=== PATIENT | male | born 1965 | race Caucasian/White ===

== ENCOUNTER 2018-05-09 18:35 | Emergency (ER) | payer OTHER ==
[2018-05-09 18:43] VITALS: BP 115/83
[2018-05-09] MEDS ORDERED: Diazepam TAB(*) 5 MG PO ONE (19:13)
--- NOTE | 2018-05-09 20:04 | ED ---
Back Pain - HPI Summary HPI Summary: Patient with history of degenerative disc disease and lumbar spine complains of fall onto lower back today at 1300 with subsequent back pain and numbness and tingling into both legs. Patient is ambulatory. Denies any other injury, pain , symptoms. Denies urinary retention, incontinence. Medical history is COPD, DDD, asthma. States he drank a sixpack to manage pain after fall. Last period 6 PM. - History of Current Complaint Chief Complaint: EDBackInjuryPain Stated Complaint: BACK PAIN NUMBNESS LEGS Time Seen by Provider: 05/09/18 19:04 Hx Obtained From: Patient Onset/Duration: Started Hours Ago Timing: Constant Back Pain Location: Is Diffuse Severity Initially: Severe Severity Currently: Severe Pain Intensity: 10 Pain Scale Used: 0-10 Numeric Character: Sharp, Dull, Aching, Throbbing Aggravating Symptom(s): Movement, Walking Associated Signs And Symptoms: Positive: Numbness, Tingling - Allergies/Home Medications Allergies/Adverse Reactions: Allergies Allergy/AdvReac Type Severity Reaction Status Date / Time indomethacin [From Indocin] Allergy See Comment Verified 05/09/18 18:44 morphine Allergy Hallucinati Verified 05/09/18 18:44 ons ranitidine [From Zantac] Allergy Hives Verified 05/09/18 18:44 MAYONNAISE Allergy GI UPSET Uncoded 05/09/18 18:44 STOMACH - SEVERE MUSHROOMS Allergy THROAT Uncoded 05/09/18 18:44 SWELLS PMH/Surg Hx/FS Hx/Imm Hx Endocrine/Hematology History: Denies: Hx Anticoagulant Therapy, Hx Diabetes, Hx Thyroid Disease Cardiovascular History: Reports: Hx Angina, Hx Coronary Artery Disease, Hx Myocardial Infarction Denies: Hx Hypercholesterolemia, Hx Hypertension, Hx Pacemaker/ICD, Hx Valvular Heart Disease Respiratory History: Reports: Hx Asthma - USE RESCUE INHALER,, Hx Chronic Obstructive Pulmonary Disease (COPD), Hx Pneumonia - recent History: Denies: Hx Dialysis, Hx Renal Disease Musculoskeletal History: Reports: Hx Arthritis - NECK, Other Musculoskeletal History - INTERVERTEBRAL DISC CERVICAL W/MYELOPATHY Sensory History: Reports: Hx Contacts or Glasses - READING GLASSES Denies: Hx Hearing Aid Opthamlomology History: Reports: Hx Contacts or Glasses - READING GLASSES Neurological History: Reports: Hx Transient Ischemic Attacks (TIA) Denies: Hx Dementia, Hx Seizures Psychiatric History: Denies: Hx Panic Disorder, Hx Substance Abuse - Surgical History Surgery Procedure, Year, and Place: CERVICAL FUSION 11/01-[facility] Infectious Disease History: No Infectious Disease History: Denies: Hx Clostridium Difficile, Hx Hepatitis, Hx Human Immunodeficiency Virus (HIV), Hx Shingles, Hx Tuberculosis, Traveled Outside the [place] in Last 30 Days - Social History Alcohol Use: Daily Substance Use Type: Reports: None Smoking Status (MU): Heavy Every Day Tobacco Smoker Type: Cigarettes Amount Used/How Often: 4-6 CIGARETTES PER DAY Have You Smoked in the Last Year: Yes Review of Systems Constitutional: Negative Eyes: Negative ENT: Negative Cardiovascular: Negative Respiratory: Negative Gastrointestinal: Negative Genitourinary: Negative Musculoskeletal: Other Skin: Other Neurological: Negative Psychological: Normal All Other Systems Reviewed And Are Negative: Yes Physical Exam - Summary Physical Exam Summary: PMS intact distally on bilateral lower extremities. Patient has positive flexion and extension of bilateral ankles and knees and hips with pain. Pain with palpation of lower back. Triage Information Reviewed: Yes Vital Signs On Initial Exam: Initial Vitals Temp Pulse Resp BP Pulse Ox 98.6 F 99 18 115/83 94 05/09/18 18:39 05/09/18 18:39 05/09/18 18:39 05/09/18 18:39 05/09/18 18:39 Vital Signs Reviewed: Yes Appearance: Positive: Well-Appearing Skin: Positive: Warm Head/Face: Positive: Normal Head/Face Inspection Eyes: Positive: Normal Neck: Positive: Supple Respiratory/Lung Sounds: Positive: Clear to Auscultation Cardiovascular: Positive: Normal Abdomen Description: Positive: Nontender Musculoskeletal: Positive: Normal Neurological: Positive: Normal Psychiatric: Positive: Normal AVPU Assessment: Alert - Acosta Coma Scale Best Eye Response: 4 - Spontaneous Best Motor Response: 6 - Obeys Commands Best Verbal Response: 5 - Oriented Coma Scale Total: 15 Diagnostics - Vital Signs Vital Signs Temp Pulse Resp BP Pulse Ox 05/09/18 19:43 17 05/09/18 18:39 98.6 F 99 18 115/83 94 - Laboratory Lab Statement: Any lab studies that have been ordered have been reviewed, and results considered in the medical decision making process. - Radiology lumbar Xray Interpretation: No Acute Changes Radiology Interpretation Completed By: ED Physician Back Pain Course/Dx - Course Course Of Treatment: Patient with history of degenerative disc disease and lumbar spine complains of fall onto lower back today at 1300 with subsequent back pain and numbness and tingling into both legs. Patient is ambulatory. Denies any other injury, pain, symptoms. Denies urinary retention, incontinence. Medical history is COPD, DDD, asthma. States he drank a sixpack to manage pain after fall. Last period 6 PM. Physical exam:PMS intact distally on bilateral lower extremities. Patient has positive flexion and extension of bilateral ankles and knees and hips with pain. Pain with palpation of lower back. L-spine x-ray negative. Patient improved with Valium 5 makes by mouth and Toradol 60 mg IV. Patient be discharged home with Rx for muscle relaxers. - Diagnoses Provider Diagnoses: Back pain, Muscle spasm Discharge - Sign-Out/Discharge Documenting (check all that apply): Patient Departure - Discharge Plan Condition: Stable Disposition: HOME Prescriptions: Cyclobenzaprine TAB* [Flexeril 10 MG TAB*] 10 mg PO TID PRN 7 Days #20 tab PRN Reason: Pain Patient Education Materials: Muscle Spasm (ED), Back Pain (ED) Referrals: No Primary Care Phys,NOPCP [Primary Care Provider] - Additional Instructions: Use muscle relaxers as directed. Take ibuprofen for pain. Return to the ED for any new or worsening symptoms - Billing Disposition and Condition Condition: STABLE Disposition: Home
[2018-05-09] MEDS ORDERED: Ketorolac INJ* 60 MG/2 ML VIAL IM ONE (20:07)
--- NOTE | 2018-05-10 07:40 | RAD ---
INDICATION: Low back pain. COMPARISON: Comparison is made with a prior CT of the lumbar spine from September 22, 2013. TECHNIQUE: 5 views of the lumbar spine were obtained including lateral, oblique, AP and a coned-down lateral view of the lumbar sacral junction. FINDINGS: The vertebra are in normal alignment. No fracture is seen. There is mild disc space narrowing and endplate spurring at the L3-L4 and L4-L5 levels. IMPRESSION: 1. NO EVIDENCE FOR FRACTURE. 2. MILD DEGENERATIVE DISC DISEASE. R0
== END 2018-05-09 21:27 | disposition home or self-care (01) ==
LOC: ED 18:35
DX: M54.5 Low back pain (principal); M62.830 Muscle spasm of back; M51.36 Other intervertebral disc degeneration, lumbar region; J44.9 Chronic obstructive pulmonary disease, unspecified; J45.909 Unspecified asthma, uncomplicated; F17.210 Nicotine dependence, cigarettes, uncomplicated; Z91.81 History of falling; Z98.1 Arthrodesis status; Z88.8 Allergy status to other drugs, medicaments and biological substances; Z88.5 Allergy status to narcotic agent
CPT/HCPCS: 72110; 96372; 99282; A9270-GY; J1885

== ENCOUNTER 2018-06-12 09:09 | Emergency (ER) | payer OTHER ==
[2018-06-12] MEDS ORDERED: Ketorolac INJ* 60 MG/2 ML VIAL IM ONE (09:45)
[2018-06-12] MEDS ORDERED: oxyCODONE/Acetamin 5/325 MG* TAB PO ONE (09:45)
[2018-06-12 11:52] VITALS: BP 135/100
--- NOTE | 2018-06-12 17:49 | ED ---
Back Pain - HPI Summary HPI Summary: Pt. is a 53 y.o male who presents to the emergency department of exacerbation of chronic back pain. Patient states he is been remodeling his trailer and has been doing a lot of lifting. Patient states he's been having pain the last several days but was not able to get to a doctor until today. Pt. notes hx of DDD but states his legs occassional "give out" and this has been happening for years he states. He states he has seen neurosx in the past, but they did not want to do sx bc of pt.'s smoking hx. Patient states he has not been taking anything for pain at home. Pain is located to mid and low back is not radiate. He denies numbness, tingling or weakness in extremities. Denies bowel or bladder incontinence or retention. Denies chest pain, shortness of breath, fever, abdominal pain, vomiting, diarrhea. Symptoms are mild in severity. Movement makes symptoms worse. Nothing makes symptoms better. - History of Current Complaint Chief Complaint: EDBackInjuryPain Stated Complaint: NECK & BACK PAIN Time Seen by Provider: 06/12/18 09:20 Hx Obtained From: Patient Pain Intensity: 4 - Allergies/Home Medications Allergies/Adverse Reactions: Allergies Allergy/AdvReac Type Severity Reaction Status Date / Time indomethacin [From Indocin] Allergy See Comment Verified 06/12/18 09:12 morphine Allergy Hallucinati Verified 06/12/18 09:12 ons ranitidine [From Zantac] Allergy Hives Verified 06/12/18 09:12 MAYONNAISE Allergy GI UPSET Uncoded 06/12/18 09:12 STOMACH - SEVERE MUSHROOMS Allergy THROAT Uncoded 06/12/18 09:12 SWELLS Home Medications: Home Medications Albuterol HFA INHALER* [Ventolin HFA Inhaler*] 2 puff PO Q4H PRN 06/12/18 [ History Confirmed 06/12/18] Cyclobenzaprine TAB* [Flexeril 10 MG TAB*] 10 mg PO Q6H PRN 06/12/18 [History Confirmed 06/12/18] Fluticasone-Salmeterol 100-50* [Advair Diskus 100-50*] 1 puff PO DAILY 06/12/18 [History Confirmed 06/12/18] Spiriva Inhaler DEVICE* [Tiotropium Inhaler DEVICE*] 1 cap PO DAILY 06/12/18 [ History Confirmed 06/12/18] traZODone TAB* [Desyrel TAB*] 100 mg PO DAILY 06/12/18 [History Confirmed ] PMH/Surg Hx/FS Hx/Imm Hx Previously Healthy: Yes Endocrine/Hematology History: Denies: Hx Anticoagulant Therapy, Hx Diabetes, Hx Thyroid Disease Cardiovascular History: Reports: Hx Angina, Hx Coronary Artery Disease, Hx Myocardial Infarction Denies: Hx Hypercholesterolemia, Hx Hypertension, Hx Pacemaker/ICD, Hx Valvular Heart Disease Respiratory History: Reports: Hx Asthma - USE RESCUE INHALER,, Hx Chronic Obstructive Pulmonary Disease (COPD), Hx Pneumonia - recent History: Denies: Hx Dialysis, Hx Renal Disease Musculoskeletal History: Reports: Hx Arthritis - NECK, Other Musculoskeletal History - INTERVERTEBRAL DISC CERVICAL W/MYELOPATHY Sensory History: Reports: Hx Contacts or Glasses - READING GLASSES Denies: Hx Hearing Aid Opthamlomology History: Reports: Hx Contacts or Glasses - READING GLASSES Neurological History: Reports: Hx Transient Ischemic Attacks (TIA) Denies: Hx Dementia, Hx Seizures Psychiatric History: Denies: Hx Panic Disorder, Hx Substance Abuse - Surgical History Surgery Procedure, Year, and Place: CERVICAL FUSION 11/01-[facility] Infectious Disease History: No Infectious Disease History: Denies: Hx Clostridium Difficile, Hx Hepatitis, Hx Human Immunodeficiency Virus (HIV), Hx Shingles, Hx Tuberculosis, Traveled Outside the in Last 30 Days - Family History Known Family History: Positive: Other - Noncontributory - Social History Lives: With Family Alcohol Use: None Substance Use Type: Reports: None Smoking Status (MU): Heavy Every Day Tobacco Smoker Type: Cigarettes Amount Used/How Often: 4-6 CIGARETTES PER DAY Have You Smoked in the Last Year: Yes Review of Systems Cardiovascular: Negative Negative: Chest Pain Respiratory: Negative Negative: Shortness Of Breath Gastrointestinal: Negative Genitourinary: Negative Positive: Other - Back pain Neurological: Negative Negative: Weakness, Paresthesia, Numbness All Other Systems Reviewed And Are Negative: Yes Physical Exam Triage Information Reviewed: Yes Vital Signs On Initial Exam: Initial Vitals Temp Pulse Resp BP Pulse Ox 98 F 100 18 133/88 95 06/12/18 09:12 06/12/18 09:12 06/12/18 09:12 06/12/18 09:12 06/12/18 09:12 Vital Signs Reviewed: Yes Appearance: Positive: Pain Distress - Pt. sitting up in bed leaning forward, appears in pain but nontoxic. Family member present. Smells heavily of cigarette smoke. Skin: Positive: Warm, Dry Head/Face: Positive: Normal Head/Face Inspection Eyes: Positive: Normal Neck: Positive: Supple Musculoskeletal: Positive: Other - Diffuse back pain. 5/5 strength in bilateral LEs without neurosensory deficits Neurological: Positive: Normal, CN Intact II-III Psychiatric: Positive: Affect/Mood Appropriate Diagnostics - Vital Signs Vital Signs Temp Pulse Resp BP Pulse Ox 06/12/18 11:51 97.7 F 87 17 135/100 97 06/12/18 11:00 86 14 91 06/12/18 10:56 87 13 120/91 91 06/12/18 10:46 86 14 118/94 94 06/12/18 10:01 22 06/12/18 09:12 98 F 100 18 133/88 95 - Laboratory Lab Statement: Any lab studies that have been ordered have been reviewed, and results considered in the medical decision making process. Back Pain Course/Dx - Course Course Of Treatment: Patient presenting with exacerbation of chronic back pain. He has no neurological deficits on exam or evidence of cauda equina syndrome. Afebrile. He was given a dose of Percocet and Toradol. Reexamination patient is sleeping comfortably and pain has improved. We'll discharge home with family member. Advised to continue Tylenol or Motrin for pain as directed at home. Apply warm compresses. To follow-up with PCP or neuro surgery. To return to ER if sxs change or worsen. - Diagnoses Differential Diagnosis/HQI/PQRI: Positive: Arthritis, Cauda Equina Syndrome, Herniated Disc, Strain, Sprain Provider Diagnoses: Chronic back pain Discharge - Sign-Out/Discharge Documenting (check all that apply): Patient Departure - Discharge Plan Condition: Good Disposition: HOME Patient Education Materials: Chronic Back Pain (ED) Referrals: [facility] [Outside] No Primary Care Phys,NOPCP [Primary Care Provider] - Slime Yuen MD [Medical Doctor] - Additional Instructions: Schedule a follow up appointment with PCP and neurosurgery Apply warm compresses to back Tylenol or Motrin for pain as directed Avoid heavy lifting Return to ER for increased pain, leg numbness/weakness, bowel or bladder incontinence, of if concerned - Billing Disposition and Condition Condition: GOOD Disposition: Home
== END 2018-06-12 11:51 | disposition home or self-care (01) ==
LOC: ED 09:09
DX: G89.29 Other chronic pain (principal); M54.9 Dorsalgia, unspecified; F17.210 Nicotine dependence, cigarettes, uncomplicated; Z98.1 Arthrodesis status; Z88.5 Allergy status to narcotic agent; Z88.8 Allergy status to other drugs, medicaments and biological substances
CPT/HCPCS: 96372; 99282; A9270-GY; J1885

== ENCOUNTER 2018-10-09 12:58 | Observation (INO) | payer OTHER ==
[2018-10-09] MEDS ORDERED: NS 0.9% 1000 ML*IV.FLUID IV ONE (13:10)
--- NOTE | 2018-10-09 13:24 | ED ---
Influenza-Like Illness - HPI Summary HPI Summary: This pt is a 53 y/o male presenting to [facility] via EMS from [facility] for myalgia, generalized weakness, nausea, vomiting, diarrhea and cough for the past 2 days. Pt reports he has had nonbloody emesis and diarrhea. He describes cough as productive with sputum, unable to describe color. Additionally notes congestion, runny nose, SOB on exertion, and a syncopal episode yesterday. Pt states last night he was standing up from the toilet after having a bowel movement when he passed out. He notes he had a head strike. Denies fever, abd pain, dizziness, lightheadedness. Pt denies eating anything out of the ordinary. EMS reports pt is hypertensive, not normal for pt. He admits to occasional alcohol and heavy tobacco use. PMHx includes COPD. - History of Current Complaint Time Seen by Provider: 10/09/18 13:01 Hx Obtained From: Patient Onset/Duration: Gradual Onset, Lasting Days, Still Present Severity: Moderate Associated Signs & Symptoms: Myalgia, Cough, Nasal Congestion, Vomiting, Diarrhea - Allergy/Home Medications Allergies/Adverse Reactions: Allergies Allergy/AdvReac Type Severity Reaction Status Date / Time indomethacin [From Indocin] Allergy See Comment Verified 10/09/18 13:10 morphine Allergy Hallucinati Verified 10/09/18 13:10 ons mushroom Allergy Swelling Verified 10/09/18 15:49 ranitidine [From Zantac] Allergy Hives Verified 10/09/18 13:10 mayonnaise AdvReac Severe GI Upset Verified 10/09/18 15:50 Home Medications: Home Medications Fluticasone-Salmeterol 500-50* [Advair Diskus 500-50*] 1 puff INH BID 10/09/18 [ History Confirmed 10/09/18] traZODone TAB* [Desyrel TAB*] 100 - 200 mg PO BEDTIME PRN 10/09/18 [History Confirmed 10/09/18] PMH/Surg Hx/FS Hx/Imm Hx Endocrine/Hematology History: Denies: Hx Anticoagulant Therapy, Hx Diabetes, Hx Thyroid Disease Cardiovascular History: Reports: Hx Angina, Hx Coronary Artery Disease, Hx Myocardial Infarction Denies: Hx Hypercholesterolemia, Hx Hypertension, Hx Pacemaker/ICD, Hx Valvular Heart Disease Respiratory History: Reports: Hx Asthma - USE RESCUE INHALER,, Hx Chronic Obstructive Pulmonary Disease (COPD), Hx Pneumonia - recent History: Denies: Hx Dialysis, Hx Renal Disease Musculoskeletal History: Reports: Hx Arthritis - NECK, Other Musculoskeletal History - INTERVERTEBRAL DISC CERVICAL W/MYELOPATHY Sensory History: Reports: Hx Contacts or Glasses - READING GLASSES Denies: Hx Hearing Aid Opthamlomology History: Reports: Hx Contacts or Glasses - READING GLASSES Neurological History: Reports: Hx Transient Ischemic Attacks (TIA) Denies: Hx Dementia, Hx Seizures Psychiatric History: Denies: Hx Panic Disorder, Hx Substance Abuse - Surgical History Surgery Procedure, Year, and Place: CERVICAL FUSION 11/01-[facility] Infectious Disease History: No Infectious Disease History: Denies: Hx Clostridium Difficile, Hx Hepatitis, Hx Human Immunodeficiency Virus (HIV), Hx Shingles, Hx Tuberculosis, Traveled Outside the [place] in Last 30 Days - Family History Known Family History: Positive: Cardiac Disease - father Family History: mother with emphysema - Social History Alcohol Use: Occasionally Substance Use Type: Reports: None Smoking Status (MU): Heavy Every Day Tobacco Smoker Type: Cigarettes Amount Used/How Often: 4-6 CIGARETTES PER DAY Have You Smoked in the Last Year: Yes Review of Systems Negative: Fever, Chills Negative: Erythema Positive: Nasal Discharge. Negative: Sore Throat Negative: Chest Pain Positive: Shortness Of Breath, Cough Positive: Vomiting, Diarrhea, Nausea. Negative: Abdominal Pain Negative: dysuria, hematuria Positive: Myalgia. Negative: Edema Negative: Rash Neurological: Other - NEG: dizziness Positive: Weakness - generalized, Syncope All Other Systems Reviewed And Are Negative: Yes Physical Exam - Summary Physical Exam Summary: Constitutional: Well-developed, Well-nourished, Alert. (-) Distressed Skin: Warm, Dry HENT: Normocephalic; Atraumatic Eyes: Conjunctiva normal Neck: Musculoskeletal ROM normal neck. (-) JVD, (-) Stridor, (-) Tracheal deviation Cardio: Rhythm regular, rate normal, Heart sounds normal; Intact distal pulses; The pedal pulses are 2+ and symmetric. Radial pulses are 2+ and symmetric. (-) Murmur Pulmonary/Chest wall: Effort normal. (-) Respiratory distress, Wheezes. Abd: Soft, (-) Tenderness, (-) Distension, (-) Guarding, (-) Rebound Musculoskeletal: (-) Edema Lymph: (-) Cervical adenopathy Neuro: Alert, Oriented x3 Psych: Mood and affect Normal Triage Information Reviewed: Yes Vital Signs On Initial Exam: Initial Vitals Temp Pulse Resp BP Pulse Ox 99.5 F 79 20 148/105 97 10/09/18 13:06 10/09/18 13:06 10/09/18 13:06 10/09/18 13:06 10/09/18 13:06 Vital Signs Reviewed: Yes Diagnostics - Vital Signs Vital Signs Temp Pulse Resp BP Pulse Ox 10/09/18 13:06 99.5 F 79 20 148/105 97 - Laboratory Result Diagrams: 10/09/18 13:46 10/09/18 13:46 Lab Statement: Any lab studies that have been ordered have been reviewed, and results considered in the medical decision making process. - Radiology Chest XR Radiology Interpretation Completed By: Radiologist Summary of Radiographic Findings: IMPRESSION: No active cardiopulmonary disease. Dr. Richardson has reviewed this report. - EKG 13:20 Cardiac Rate: NL - at 75 bpm EKG Rhythm: Sinus Rhythm Summary of EKG Findings: No STEMI. Flu Symptom Course/Dx - Course Assessment/Plan: Pt is a 53 y/o male, with hx of COPD, who presents to the ED via EMS from [facility] for myalgia, generalized weakness, nausea, vomiting , diarrhea and cough for the past 2 days. Pt reports he has had nonbloody emesis and diarrhea. He describes cough as productive with sputum, unable to describe color. Additionally notes congestion, runny nose, SOB on exertion, and a syncopal episode yesterday. Pt states last night he was standing up from the toilet after having a bowel movement when he passed out. He notes he had a head strike. Blood work is unremarkable. Influenza A and B are both negative. Chest XR shows no active cardiopulmonary disease. I discussed with Dr. Villegas, hospitalist, who will see the pt in the ED. Pt will be [place] [facility] - Diagnoses Provider Diagnoses: Syncope - Physician Notifications Discussed Care Of Patient With: Suzanna Villegas - hospitalist Time Discussed With Above Provider: 15:13 Instructed by Provider To: MD Will See In ED Discharge - Sign-Out/Discharge Documenting (check all that apply): Patient Departure - [place] [facility] All imaging exams completed and their final reports reviewed: Yes - Discharge Plan Condition: Stable Disposition: ADMITTED TO [facility] - Attestation Statements Document Initiated by Scribe: Yes Documenting Scribe: Constanza Torres Provider For Whom Scribe is Documenting (Include Credential): David Richardson MD Scribe Attestation: Constanza Mcknight, scribed for David Richardson MD on 10/09/18 at 1727. Status of Scribe Document: Ready
[2018-10-09 14:01] LABS: ABS Basophils 0 10^3/ul (0-0.2); ABS Eosinophils 0.1 10^3/ul (0-0.6); ABS Lymphocytes 1.3 10^3/ul (1.0-4.8); ABS Monocytes 0.5 10^3/ul (0-0.8); ABS Neutrophils 4.2 10^3/ul (1.5-7.7); ABS Nucleated RBC 0 10^3/ul; Eosinophil % 1.9 %; Hematocrit 47 % (42-52); Hemoglobin 16.3 g/dl (14.0-18.0); Lymphocyte % 21.2 %; Mean Corpuscular HGB Conc 34 g/dl (31-36); Mean Corpuscular Hemoglobin 34 pg (27-31); Mean Corpuscular Volume 98 fL (80-94); Mean Platelet Volume 7.3 fL (7.4-10.4); Nucleated Red Blood Cells % 0.1; Platelet Count 264 10^3/ul (150-450); Red Blood Count 4.84 10^6/ul (4.00-5.40); Red Cell Distribution Width 13 % (10.5-15); White Blood Count 6.1 10^3/ul (3.5-10.8)
[2018-10-09 14:12] LABS: Activated Partial Thrombo Time 32.2 seconds (26.0-36.3); INR 0.81 (0.77-1.02)
[2018-10-09 14:19] LABS: Influenza A Molecular NEGATIVE (Negative); Influenza B Molecular NEGATIVE (Negative)
[2018-10-09 14:29] LABS: Albumin 4.5 g/dL (3.2-5.2); Albumin/Globulin Ratio 1.6 (1-3); BUN/Creatinine Ratio 9.6 (8-20); Calcium 9.4 mg/dL (8.6-10.3); EGFR African American 117.7 (>60); EGFR Non-African American 97.3 (>60); Globulin 2.9 g/dL (2-4); Potassium 4.3 mmol/L (3.5-5.0); Total Bilirubin 0.6 mg/dL (0.2-1.0); Total Protein 7.4 g/dL (6.4-8.9)
[2018-10-09] MEDS ORDERED: Acetaminophen TAB* 325 MG PO PRN (15:39)
[2018-10-09] MEDS ORDERED: Albuterol 2.5 MG/3 ML NEB.SOL* (0.083%) INH PRN (15:39)
[2018-10-09] MEDS ORDERED: Cyclobenzaprine TAB* 10 MG PO PRN (15:49)
[2018-10-09] MEDS ORDERED: traZODone TAB* 100 MG PO PRN (15:49)
[2018-10-09] MEDS ORDERED: LORazepam TAB(*) 1 MG PO SCH (16:00)
[2018-10-09] MEDS: predniSONE TAB* 20 MG PO SCH (16:32)
[2018-10-09] MEDS: NS 0.9% 1000 ML* 1,000 ML IV SCH (17:01)
[2018-10-09] MEDS ORDERED: Albuterol/Ipratropium NEB.SOL* Albuterol 2.5 MG/Ipratropium 0.5 MG 3 ML INH SCH (19:00)
[2018-10-09] MEDS: Mometasone/Formoter 200/5 MDI INH SCH (19:55)
--- NOTE | 2018-10-09 20:30 | HP ---
CC: Dr. Hanley * HISTORY AND PHYSICAL: DATE OF ADMISSION: 10/09/18 PRIMARY CARE PROVIDER: Dr. Hanley. ATTENDING PHYSICIAN WHILE IN THE HOSPITAL: Dr. Suzanna Villegas * (report dictated by Maciel Brown NP) CHIEF COMPLAINT: 1. Cough. 2. Syncope. 3. Shortness of breath. 4. Hypoxia. HISTORY OF PRESENT ILLNESS: Mr. Patton is a 53-year-old male patient, who comes into the ED today saying that the last 24 hours to 36 hours, he just has not been feeling well. He has been feeling fatigued, run down, aching all over. He thinks he had a fever last night, he was chilled, he could not get warm. He says that he was feeling short of breath. He says that to his knowledge, he has not been around anybody sick. According to the patient, he was on antibiotics and steroids few weeks ago according to him, which he finished, but he says that he just in the last 36 hours feeling again more short of breath, cough, aching. He went to his primary and she noted that he was hypoxic at 87% on room air and he was placed on oxygen and sent into the ER. He denies having any chest pain. He does state that he has been having diarrhea in the setting of an antibiotic a couple of weeks ago. He says he has been having watery diarrhea and he says he has been going up to 15 times a day. He denies any abdominal discomfort. No abdominal cramping. He says that he has not had an appetite. He just feels nauseous, has not been feeling well. He denied having any significant weight change. He denied any recent trips or travel. No leg or calf pain or swelling, but because of the fact that he just was not getting any better, he was still feeling ill, having this cough and the hypoxia, he came into the ED. He does admit to a syncopal episode last night after using the toilet. He went to stand up and the next thing he knew, he hit his head. He denied any chest pain prior to or after this and denies having any chest pain currently. PAST MEDICAL HISTORY: Significant for: 1. TIA. 2. COPD. 3. History of alcohol abuse. 4. DE. 5. Tobacco abuse. 6. Cervical spine stenosis. PAST SURGICAL HISTORY: He has had: 1. Heart catheterization. 2. C4-5 fusion. MEDICATIONS: Home meds according to the list provided include: 1. Advair 1 puff inhaled b.i.d. 2. Trazodone 1 tab at bedtime as needed. 3. Flexeril 10 mg every 6 hours as needed. 4. Spiriva 1 capsule inhaled daily. 5. Ventolin 2 puffs inhaled every 4 hours as needed. ALLERGIES TO MEDICATIONS: Included INDOMETHACIN, MORPHINE, ZANTAC, MAYONNAISE, and MUSHROOMS. FAMILY HISTORY: His mother had a history of COPD. Father had a history of CAD and stomach cancer. SOCIAL HISTORY: Again, he does drink 5 to 6 beers almost on a daily basis. He had 5 to 6 beers last night. He does smoke a pack of cigarettes a day. His surrogate decision maker is his friend, Tess. REVIEW OF SYSTEMS: He does admit to having chills, but have no documented fever. He denied having any significant weight change. There is no double vision. He denied having any ear discharge. There is no rhinorrhea. He denied having any sore throat. He does admit to having a cough. He denies having any chest pain. He does admit to dyspnea on exertion. There is no orthopnea, there is no nocturnal dyspnea. Denied any abdominal pain. He does admit to feeling nauseated. He did vomit yesterday and he does state that he has been having copious amounts of diarrhea. He denies having any cramping in his abdomen. No dysuria, no frequency. He denied any seizure. He did admit to having loss of consciousness yesterday. Review of 14 systems completed, all others negative. PHYSICAL EXAMINATION GENERAL: At this time, Mr. Patton is an 53-year-old male patient. He appears to be chronically ill appearing. He appears to be older than stated age. VITAL SIGNS: Blood pressure 157/104 with a pulse of 93, respirations 18, O2 sat 96%, temperature 99.5. HEENT: Head: Atraumatic, normocephalic. Eyes: EOMs intact. Sclerae anicteric and not pale. Throat: Oral mucosa appears to be dry. No oropharyngeal erythema. NECK: Supple. LUNGS: He had diminished breath sounds at the bases. He had expiratory wheezing noted in the upper lobes. Equal diaphragmatic expansion. HEART: Sounds S1, S2. He had a regular rate and rhythm. There were no murmurs , rubs, or gallops. ABDOMEN: Soft. It was flat, nontender. Bowel sounds were present. EXTREMITIES: Pulses were 2+ throughout. He is moving all 4 extremities with 5/ 5 strength. NEUROLOGIC: He is awake, he is alert, he is oriented x3. He had no gross focal deficits. SKIN: Intact. DIAGNOSTIC STUDIES/LAB DATA: His labs today revealed a WBC of 6.1, RBC of 4.85 , hemoglobin of 16.3, hematocrit of 47, platelet count of 263. INR 0.81, PTT of 32.2. Sodium 136, potassium of 4.3, chloride of 104, bicarb 24, BUN 8, creatinine of 0.83, glucose 95, lactate 0.9, calcium 9.4. Total bili 0.6, AST 36, ALT 25, alk phos 76. Troponin 0. Albumin 4.5. Serology was negative for flu. The patient had a chest x-ray obtained today, which revealed no active cardiopulmonary disease. He had an EKG obtained today, which revealed a normal sinus rhythm with a rate of 75. He had no ST elevation or T-wave inversions. It was reviewed to the previous EKG, it appears to be similar with the exception the T-waves are upright on lead III and aVF. Old medical records were reviewed. ASSESSMENT AND PLAN: Mr. Patton is a 53-year-old male patient coming into the ED today with complaints of a syncopal episode last night. In addition to this, complains of not feeling well over the last 24 hours and with associated diarrhea. He will be admitted under observation status for: 1. Syncope. I suspect this is probably related to orthostasis. I will check orthostatic blood pressures, check echo, place him on telemetry, cycle his troponins, and I will also get a CT of the brain because he did fall and hit his head and we will continue to monitor. 2. Diarrhea. Again, this in the setting of antibiotics, I do want to rule out Clostridium difficile. I think this is why he became orthostatic because he probably got dehydrated. He has been hydrated in the ED. We will send off stool studies. We will continue to follow him. 3. Chronic obstructive pulmonary disease with exacerbation. I suspect this is why he is hypoxic. I will go ahead and put him on nebs and steroids. I do not think there is a role for antibiotics just yet as this could be viral illness. We will put him on again medications of steroids, Dulera, and DuoNeb standing and pulmonary toileting. I have sent legionella and Streptococcus pneumoniae antigens and we will get a sputum culture. 4. History of transient ischemic attack. Continue with secondary prevention. 5. Tobacco abuse. I have asked him to abstain from smoking. He refused nicotine replacement. 6. EtOH abuse. I will put him on a WAM protocol. 7. History of myocardial infarction. Again, continue with secondary prevention. I do see that he is not on an aspirin, but this is something that could be reviewed by the primary. 8. DVT prophylaxis. I will place him on heparin subcu. 9. Code status. He is a full code. 10. Fluids, electrolytes, and nutrition. He can have a heart-healthy diet. TIME SPENT: Time spent on admission was 60 minutes, greater than half the time spent [id number] with the patient obtaining my history and physical, other half of the time spent going over the plan of care with the patient and implementing plan of care. I did discuss the plan of care with my attending, Dr. Villegas; she is in agreement. MACIEL BROWN NP [id number]/[facility] #: [id number] MARITZA
[2018-10-09 21:02] LABS: Urine Appearance Clear; Urine Bilirubin Negative (Negative); Urine Blood Negative (Negative); Urine Color Yellow; Urine Glucose Negative (Negative); Urine Ketones Negative (Negative); Urine Nitrite Negative (Negative); Urine Protein Negative (Negative); Urine Specific Gravity 1.012 (1.010-1.030); Urine Urobilinogen Negative (Negative)
[2018-10-09] MEDS: Heparin VIAL(*) 5000 UNITS/ML VIAL (FIVE THOUSAND) SUBCUT SCH (21:57)
[2018-10-10] MEDS: NS 0.9% 1000 ML* 1,000 ML IV SCH (02:27)
[2018-10-10 05:40] LABS: ABS Basophils 0 10^3/ul (0-0.2); ABS Eosinophils 0 10^3/ul (0-0.6); ABS Lymphocytes 0.8 10^3/ul (1.0-4.8); ABS Monocytes 0.4 10^3/ul (0-0.8); ABS Neutrophils 5.5 10^3/ul (1.5-7.7); ABS Nucleated RBC 0 10^3/ul; Eosinophil % 0 %; Hematocrit 42 % (42-52); Hemoglobin 14.6 g/dl (14.0-18.0); Mean Corpuscular HGB Conc 35 g/dl (31-36); Mean Corpuscular Hemoglobin 34 pg (27-31); Mean Corpuscular Volume 97 fL (80-94); Mean Platelet Volume 7.8 fL (7.4-10.4); Nucleated Red Blood Cells % 0; Platelet Count 239 10^3/ul (150-450); Red Cell Distribution Width 13 % (10.5-15); White Blood Count 6.7 10^3/ul (3.5-10.8)
[2018-10-10 05:45] LABS: INR 0.88 (0.77-1.02)
[2018-10-10 05:58] LABS: BUN/Creatinine Ratio 11.4 (8-20); Calcium 8.5 mg/dL (8.6-10.3); EGFR African American 124.6 (>60); Potassium 4.1 mmol/L (3.5-5.0)
[2018-10-10] MEDS: Heparin VIAL(*) 5000 UNITS/ML VIAL (FIVE THOUSAND) SUBCUT SCH ×3 (06:23→21:13)
[2018-10-10] MEDS: Mometasone/Formoter 200/5 MDI INH SCH ×2 (07:54→20:40)
--- NOTE | 2018-10-10 07:54 | PN ---
Subjective Date of Service: 10/10/18 Interval History: HD #2 on 10/10/16 53 yo M with PMH TIA, COPD, ETOH use d/o , hx of MS, tob use and neck pain presented with sx of not feeling wlell, dizziness, diarrhea, and some SOB. Thought to have COPD exacerbation from viral illness Overnight no acute events, VSS, he reports one formed stool overnight. This morning still with some sig SOB, particuarly on exertion, he is not using inhaler regularly, will encourage this and IS use. He still has sig wheezing and reports of some body aches. Otherwise doing OK denies tracey chest pain, abdominal pain, MCKINLEY, N/V. Objective Active Medications: Acetaminophen (Tylenol Tab*) 650 mg PO Q4H PRN PRN Reason: FEVER/PAIN Albuterol (Ventolin 2.5 Mg/3 Ml Neb.Ladi*) 2.5 mg INH Q2H PRN PRN Reason: SOB/WHEEZING Aspirin (Aspirin Ec Tab*) 81 mg PO DAILY [facility] Cyclobenzaprine HCl (Flexeril Tab*) 10 mg PO TID PRN PRN Reason: SPASMS Folic Acid (Folvite Tab*) 1 mg PO DAILY [facility] Heparin Sodium (Porcine) (Heparin Vial(*)) 5,000 units SUBCUT Q8HR [facility] Last Admin: 10/10/18 06:23 Dose: 5,000 units Sodium Chloride (Ns 0.9% 1000 Ml*) 1,000 mls @ 125 mls/hr IV PER RATE [facility] Stop: 10/10/18 23:44 Last Admin: 10/10/18 02:27 Dose: 125 mls/hr Lorazepam (Ativan Tab(*)) 0 - 6 mg PO .PER [facility] PROTOCOL [facility]; Protocol Mometasone Furoate/Formoterol Fumar (Dulera 200/5 Mdi*) 2 puff INH BID [facility] Last Admin: 10/09/18 19:55 Dose: 2 puff Multivitamins/Minerals (Theragran/Minerals Tab*) 1 tab PO DAILY [facility] Prednisone (Deltasone Tab*) 60 mg PO DAILY [facility] Last Admin: 10/09/18 16:32 Dose: 60 mg Thiamine HCl (Vitamin B-1 Tab*) 100 mg PO DAILY [facility] Trazodone HCl (Desyrel Tab*) 100 mg PO BEDTIME PRN PRN Reason: SLEEP Vital Signs - 8 hr 10/10/18 10/10/18 10/10/18 00:09 02:16 04:33 Temperature 98.2 F 98.2 F 97.9 F Pulse Rate 73 76 76 Respiratory 18 16 16 Rate Blood Pressure 114/72 114/72 109/81 (mmHg) O2 Sat by Pulse 96 97 97 Oximetry 10/10/18 06:08 Temperature 98.7 F Pulse Rate 75 Respiratory 16 Rate Blood Pressure 117/72 (mmHg) O2 Sat by Pulse 97 Oximetry Oxygen Devices in Use Now: None Appearance: Well appearing man in NAD Eyes: No Scleral Icterus, PERRLA Ears/Nose/Mouth/Throat: NL Teeth, Lips, Gums, Mucous Membranes Moist Neck: NL Appearance and Movements; NL JVP, Trachea Midline Respiratory: Symmetrical Chest Expansion and Respiratory Effort, - - Diffuse E wheezing and rhonchi Cardiovascular: NL Sounds; No Murmurs; No JVD, RRR Abdominal: NL Sounds; No Tenderness; No Distention, No Hepatosplenomegaly Lymphatic: No Cervical Adenopathy Skin: No Rash or Ulcers Neurological: Alert and Oriented x 3 Result Diagrams: 10/10/18 05:19 10/10/18 05:19 Microbiology and Other Data: Microbiology 10/09/18 22:47 Gram Stain - Preliminary Sputum 10/09/18 20:33 Legionella Urinary Antigen - Final Urine Negative Legionella Antigen Streptococcus pneumoniae Ag Screen - Final Negative S. pneumo Antigen 10/09/18 13:39 Influenza Types A,B Antigen - Final Nasal Specimen received for Influenza A/B Molecular testing Assess/Plan/Problems-Billing Assessment: 53 yo M with PMH TIA, COPD, ETOH use d/o , hx of MS, tob use and neck pain presnted with sx of not feeling wlell, dizziness, diarhhea, and some SOB. Thought to have COPD exacerbation from viral illness, still with sig wheezing today - Patient Problems (1) COPD exacerbation Current Visit: Yes Status: Acute Code(s): J44.1 - CHRONIC OBSTRUCTIVE PULMONARY DISEASE W (ACUTE) EXACERBATION SNOMED Code(s): 907056742 Comment: Pred 60, nebs, will start azithro given sig wheezing and anti inflammatory proprerties -Flu negative (2) Alcohol use disorder Current Visit: Yes Status: Acute Code(s): KJJ0238 - SNOMED Code(s): 70132545 Comment: Currently on [facility] protocol (3) Diarrhea Current Visit: Yes Status: Acute Code(s): R19.7 - DIARRHEA, UNSPECIFIED SNOMED Code(s): 05947163 Comment: Likely part of viral illness, has had one formed stool thus C Diff unlikely (4) CAD (coronary artery disease) Current Visit: Yes Status: Acute Code(s): I25.10 - ATHSCL HEART DISEASE OF [place] CORONARY ARTERY W/O ANG PCTRS SNOMED Code(s): 15085025 Comment: Based on prior MS and TIA -Continue asa (5) DVT prophylaxis Current Visit: Yes Status: Acute Code(s): RNO8375 - SNOMED Code(s): 990466737 Status and Disposition: Inpatient currently, likely can d/c home tomorrow if sx improve
[2018-10-10] MEDS: predniSONE TAB* 20 MG PO SCH (09:06)
[2018-10-10] MEDS: Thiamine TAB* 100 MG TAB PO SCH (09:06)
[2018-10-10] MEDS: Folic Acid TAB* 1 MG PO SCH (09:06)
[2018-10-10] MEDS: Multivitamins/Minerals TAB PO SCH (09:06)
[2018-10-10] MEDS: Aspirin EC TAB* 81 MG TAB.EC PO SCH (09:06)
--- NOTE | 2018-10-10 10:57 | ECHO ---
Patient: [facility] Rec#: [id number] : 1965 Date: 10/10/2018 Age: 53y Height: 170.18 cm / 67.0 in Weight: 73.94 kg / 163.0 lbs Sex: M BSA: 1.85 Room#: 432 Admit Date#: 10/09/2018 Type: Inpatient Referring: Maciel Brown NP Reading: Sheridan Valenzuela MD Taproom Attendant: Toshia Medina,RDCS,RDMS CC: Duyen Hanley MD Transthoracic Echocardiogram Indication: Syncope BP: 117/72 HR: 87 Rhythm: NSR Findings History: COPD, ETOH, NE, TIA, smoker Technical Comments: The study quality is fair. Left Ventricle: The left ventricular chamber size is normal.lower limits of normal chamber diameter. Mild concentric left ventricular hypertrophy is observed. Global left ventricular wall motion and contractility are within normal limits. The estimated ejection fraction is 60-65%. There is no consistent Doppler evidence of clinically significant diastolic dysfunction. Left Atrium: The left atrial chamber size is normal. Right Ventricle: The right ventricular chamber size and systolic function are within normal limits. Right Atrium: The right atrial cavity size is normal. Aortic Valve: The aortic valve is trileaflet. Systolic excursion of the aortic valve is normal. There is a trace of aortic regurgitation. There is no evidence of aortic stenosis. Mitral Valve: The mitral valve leaflets appear normal. There is no evidence of mitral regurgitation. There is no evidence of mitral stenosis. Tricuspid Valve: The tricuspid valve leaflets are normal. There is trace tricuspid regurgitation. Unable to estimate the right ventricular systolic pressure. Pulmonic Valve: There is no evidence of pulmonic valve thickening. There is no evidence of pulmonic regurgitation. Pericardium: There is no significant pericardial effusion. Aorta: The aortic root appears normal. There is no dilatation of the aortic arch. Pulmonary Artery: The main pulmonary artery is not well visualized. Venous: The inferior vena cava appears normal in size. There is an approximate 50% respiratory change in the inferior vena cava dimension. Conclusions Mild concentric left ventricular hypertrophy is observed. The left ventricular chamber diameter is lower limits of normal. Global left ventricular wall motion and contractility are within normal limits. The estimated ejection fraction is 60-65%. The right ventricular chamber size and systolic function are within normal limits. All valves appear structurally normal with normal function. Compared with prior echo of 09/20/07, no longer see anterior wall hypokinesis, LVH stable, TR is new. Measurements Name Value Normal Range RVIDd (AP) 2D 3.2 cm (0.9 - 2.6) RVDdMajor (2D) 2 cm (2.2 - 4.4) RAd ISD 4CH 3.2 cm (3.4 - 4.9) RA (A4C)W 3.3 cm (2.9 - 4.6) IVSd (2D) 1.3 cm (0.6 - 1) LVPWd (2D) 1.2 cm (0.6 - 1) LVIDd (2D) 3.7 cm (3.6 - 5.4) LVIDs (2D) 2.4 cm - LV FS (2D) 36 % (25 - 45) Aortic Annulus 2.2 cm (1.4 - 2.6) Ao root diameter (2D) 2.5 cm (2.1 - 3.5) Ascending Ao 3.3 cm (2.1 - 3.4) Aortic arch 2.9 cm (1.8 - 3.4) LA dimension (AP) 2D 2.5 cm (2.3 - 3.8) LAd ISD 4CH 4.4 cm (2.9 - 5.3) LA ISD 4CH W 3 cm (2.5 - 4.5) Name Value Normal Range LA ESV SP 4CH (A/L) 32.55 ml - LA ESV SP 2CH (A/L) 62.52 ml - LA ESV BP (A/L) 45.54 ml - LA ESV BP (A/L) index 24.5 ml/m2 - LA ESV SP 4CH (MOD) 28.3 ml - LA ESV SP 2CH (MOD) 54.45 ml - Name Value Normal Range MV E-wave Vmax 0.7 m/sec - MV deceleration time 166 msec - MV A-wave Vmax 0.9 m/sec - MV E:A ratio 0.9 ratio - LV septal e' Vmax 0.07 m/sec - LV lateral e' Vmax 0.1 m/sec - LV E:e' septal ratio 10 ratio - LV E:e' lateral ratio 7 ratio - Name Value Normal Range AV Vmax 1.6 m/sec - AV VTI 29.5 cm - AV peak gradient 10 mmHg - AV mean gradient 5.4 mmHg - LVOT Vmax 1.4 m/sec - LVOT VTI 24 cm - LVOT peak gradient 8 mmHg - LVOT mean gradient 3.8 mmHg - WERNER Vmax 0.7 m/sec - Name Value Normal Range RAP 8 mmHg - IVC diameter 1.8 cm - Name Value Normal Range PV Vmax 0.9 m/sec - PV peak gradient 3.2 mmHg -
[2018-10-10] MEDS ORDERED: Azithromycin TAB* 250 MG PO ONE (12:40)
[2018-10-10] MEDS ORDERED: Spiriva Inhaler DEVICE* 1 EACH DEVICE SCH (13:00)
[2018-10-10] MEDS: Tiotropium CAP.INH* CAP.INH/18 MCG (USE ORDER SET !) INH SCH (15:06)
[2018-10-11] MEDS: Heparin VIAL(*) 5000 UNITS/ML VIAL (FIVE THOUSAND) SUBCUT SCH ×2 (05:28→13:44)
[2018-10-11] MEDS: Multivitamins/Minerals TAB PO SCH (07:53)
[2018-10-11] MEDS: predniSONE TAB* 20 MG PO SCH (07:53)
[2018-10-11] MEDS: Aspirin EC TAB* 81 MG TAB.EC PO SCH (07:53)
[2018-10-11] MEDS: Thiamine TAB* 100 MG TAB PO SCH (07:54)
[2018-10-11] MEDS: Folic Acid TAB* 1 MG PO SCH (07:54)
[2018-10-11] MEDS: Mometasone/Formoter 200/5 MDI INH SCH (08:47)
[2018-10-11] MEDS: Tiotropium CAP.INH* CAP.INH/18 MCG (USE ORDER SET !) INH SCH (08:47)
[2018-10-11 12:32] VITALS: BP 123/87
--- NOTE | 2018-10-11 16:10 | DS ---
CC: Dr. Hanley * DATE OF ADMISSION: 10/09/2018. DATE OF DISCHARGE: 10/11/2018. PRIMARY CARE PHYSICIAN: Dr. Hanley. PRINCIPAL DIAGNOSES: 1. Syncope - possible orthostatic versus vasovagal. 2. COPD exacerbation. SECONDARY DIAGNOSES: 1. History of TIA. 2. History of alcohol abuse. 3. Coronary artery disease. 4. Tobacco abuse. DISCHARGE MEDICATIONS: 1. Advair 550 one puff inhaled twice daily. 2. Trazodone 100 to 200 mg p.o. at bedtime prn insomnia. 3. Flexeril 10 mg p.o. q.6 hours prn spasm. 4. Spiriva one puff inhaled daily. 5. Albuterol two puffs inhaled q.4 hours prn shortness of breath. 6. Prednisone 40 mg p.o. daily times 2 days, then 30 mg times 2 days, then 20 mg times 2 days, then 10 mg times 2 days. 7. Multivitamin one tab p.o. daily. 8. Azithromycin 250 mg p.o. daily. HOSPITAL COURSE: Mr. Patton is a 53-year-old male who presented to the emergency room on 10/09/2018 with complaints of syncope, cough, shortness of breath, and hypoxia. The night prior to admission, the patient had used the toilet and went to stand up and the next thing he knew he had hit his head. He also stated that for approximately 36 hours prior to admission he had felt more short of breath and had coughing. He went to see his primary and was noted to be hypoxic and was referred to the emergency room for evaluation. The patient has been treated for a COPD exacerbation with steroids, Azithromycin, and nebulizer treatments. With this, the patient's breathing has improved significantly. He states that his breathing is still slightly worse than normal , but overall he thinks he can manage at home. The patient will continue on Azithromycin 250 mg p.o. daily times four more days and a Prednisone taper over the next eight days. In terms of his syncope, the patient was evaluated on telemetry. He had occasional PVC's. He underwent transthoracic echocardiogram which revealed an EF of 60 to 65 percent. Global left ventricular wall motion and contractility were felt to be within normal limits. All valves appeared to be structurally normal and with normal function. Compared to the echo done 09/20/2007, anterior wall hypokinesis was no longer observed. My suspicion is the patient' s syncope may have been related to orthostasis versus vasovagal syncope. On the day of discharge, the patient is awake, alert, and oriented, sitting up in the chair in no acute distress. His cardiac exam reveals a normal S1, S2 with a regular rate and rhythm. He has no lower extremity edema. His lungs are clear bilaterally. There is no wheezing. They did not sound tight. There are no crackles. Abdomen is soft, nontender, nondistended. He moves all four extremities symmetrically. FOLLOW-UP CONCERNS: The patient is being discharged home today, 10/11/2018. The patient should follow-up with Dr. Hanley in the next four to seven days. There was a question raised for an overnight pulse oximetry by the patient today; however, this was not performed during this hospitalization. The patient can be referred to Pulmonology from his primary care provider to have the overnight pulse oximetry study obtained. ACTIVITY LEVEL: As tolerated. DIET: Heart-healthy. CONDITION ON DISCHARGE: Stable. TIME SPENT: Twenty-five minutes were spent discharging this patient. [id number]/[facility] #: [id number] MARITZA
== END 2018-10-11 16:49 | disposition home or self-care (01) ==
LOC: ED 12:58 → INTOOBSV 15:35 → MEDTELE 15:35
PROVIDERS: ADMIT Internal Medicine; ATTEND Hospitalist
DX: R55 Syncope and collapse (principal); J44.1 Chronic obstructive pulmonary disease with (acute) exacerbation; F10.10 Alcohol abuse, uncomplicated; R05 Cough; R09.81 Nasal congestion; R19.7 Diarrhea, unspecified; I25.10 Atherosclerotic heart disease of native coronary artery without angina pectoris; I25.2 Old myocardial infarction; F17.210 Nicotine dependence, cigarettes, uncomplicated; R11.2 Nausea with vomiting, unspecified; R06.02 Shortness of breath; Z86.73 Personal history of transient ischemic attack (TIA), and cerebral infarction without residual deficits
CPT/HCPCS: 36415; 70450; 71045; 80048; 80053; 81003; 83605; 84484; 85025; 85610; 85730; 87040; 87045; 87046; 87070; 87205; 87425; 87899; 93005; 93306; 94640; 96372; 99284; A9270-GY; G0378; J1644; J7512

== ENCOUNTER 2018-10-14 23:18 | Emergency (ER) | payer OTHER ==
[2018-10-14] MEDS ORDERED: Nicotine Inhaler* 10 MG AMP INH PRN (23:25)
[2018-10-14 23:48] LABS: Hematocrit 45 % (42-52); Hemoglobin 15.5 g/dl (14.0-18.0); Mean Corpuscular HGB Conc 34 g/dl (31-36); Mean Corpuscular Hemoglobin 33 pg (27-31); Mean Corpuscular Volume 97 fL (80-94); Mean Platelet Volume 6.6 fL (7.4-10.4); Platelet Count 312 10^3/ul (150-450); Red Blood Count 4.64 10^6/ul (4.00-5.40); Red Cell Distribution Width 14 % (10.5-15); White Blood Count 7.9 10^3/ul (3.5-10.8)
[2018-10-15 00:04] LABS: ALT 27 U/L (7-52); AST 33 U/L (13-39); Albumin 4.4 g/dL (3.2-5.2); Albumin/Globulin Ratio 1.6 (1-3); Alkaline Phosphatase 71 U/L (34-104); Anion Gap 10 mmol/L (2-11); Blood Urea Nitrogen 13 mg/dL (6-24); CO2 Carbon Dioxide 27 mmol/L (22-32); Calcium 8.9 mg/dL (8.6-10.3); Chloride 106 mmol/L (101-111); EGFR African American 94.9 (>60); EGFR Non-African American 78.5 (>60); Globulin 2.8 g/dL (2-4); Glucose 99 mg/dL (70-100); Potassium 3.7 mmol/L (3.5-5.0); Sodium 143 mmol/L (135-145); Total Protein 7.2 g/dL (6.4-8.9)
[2018-10-15 00:08] LABS: Acetaminophen < 15 mcg/mL; Alcohol 391 mg/dL (<10); Salicylate < 2.50 mg/dL (<30)
[2018-10-15] MEDS ORDERED: Acetaminophen TAB* 325 MG PO ONE ×2 (00:20→09:38)
[2018-10-15 00:24] LABS: TSH (Thyroid Stimulating Horm) 2.51 mcIU/mL (0.34-5.60)
--- NOTE | 2018-10-15 01:08 | ED ---
Medical Screening - HPI Summary HPI Summary: Patient with history of chronic EtOH, obviously inebriated today, complains of fall earlier today with head injury, and subsequent head pain and voice inside his head telling him to hurt himself. Patient admits to 7 beers and 1 quart of homemade moonshine. Patient also admits to stabbing himself in the right thigh with a knife. Wound on right thigh almost unnoticeable. Patient denies any other symptoms or injury. Patient states he was getting up from the toilet after having a bowel movement and got lightheaded and fell to the ground and hit his head. LOC unknown. Patient has been ambulatory since. Denies prior history of hearing voices telling him to hurt himself. Medical history is chronic EtOH, pancreatitis, liver disease, COPD. - History of Current Complaint Chief Complaint: EDMentalHealth Stated Complaint: MHE Time Seen by Provider: 10/14/18 23:21 Onset/Duration: Started Hours Ago Severity: moderate PMH/Surg Hx/FS Hx/Imm Hx Endocrine/Hematology History: Denies: Hx Anticoagulant Therapy, Hx Diabetes, Hx Thyroid Disease Cardiovascular History: Reports: Hx Angina, Hx Coronary Artery Disease, Hx Myocardial Infarction Denies: Hx Hypercholesterolemia, Hx Hypertension, Hx Pacemaker/ICD, Hx Valvular Heart Disease Respiratory History: Reports: Hx Asthma - USE RESCUE INHALER,, Hx Chronic Obstructive Pulmonary Disease (COPD), Hx Pneumonia - recent GI History: Reports: Other GI Disorders - pancreatitis History: Denies: Hx Dialysis, Hx Renal Disease Musculoskeletal History: Reports: Hx Arthritis - NECK, Other Musculoskeletal History - INTERVERTEBRAL DISC CERVICAL W/MYELOPATHY Sensory History: Reports: Hx Contacts or Glasses - READING GLASSES Denies: Hx Hearing Aid Opthamlomology History: Reports: Hx Contacts or Glasses - READING GLASSES Neurological History: Reports: Hx Transient Ischemic Attacks (TIA) Denies: Hx Dementia, Hx Headaches, Hx Migraine, Hx Nerve Disease, Hx Seizures , Hx Spinal Cord Injury Psychiatric History: Reports: Hx Anxiety, Hx Panic Disorder Denies: Hx Attention Deficit Hyperactivity Disorder, Hx Eating Disorder, Hx Depression, Hx Post Traumatic Stress Disorder, Hx Inpatient Treatment, Hx Community Mental Health Tx, Hx Schizophrenia, Hx Bipolar Disorder, Hx Suicide Attempt, Hx of Violent Episodes Against Others, Hx Substance Abuse - Pt denies having dependence, Other Psychiatric Issues/Disorders - Surgical History Surgery Procedure, Year, and Place: CERVICAL FUSION 11/01-[facility] Infectious Disease History: Unable to Obtain/Confirm Infectious Disease History: Denies: Hx Clostridium Difficile, Hx Hepatitis, Hx Human Immunodeficiency Virus (HIV), Hx Shingles, Hx Tuberculosis, Traveled Outside the [place] in Last 30 Days - Family History Known Family History: Positive: Cardiac Disease - father, Other - Noncontributory Family History: mother with emphysema - Social History Alcohol Use: Occasionally Substance Use Type: Reports: None Smoking Status (MU): Heavy Every Day Tobacco Smoker Type: Cigarettes Amount Used/How Often: 4-6 CIGARETTES PER DAY Have You Smoked in the Last Year: Yes Review of Systems Constitutional: Negative Eyes: Negative ENT: Negative Cardiovascular: Negative Respiratory: Negative Gastrointestinal: Negative Genitourinary: Negative Musculoskeletal: Negative Skin: Negative Neurological: Negative Positive: Headache Positive: Other All Other Systems Reviewed And Are Negative: Yes Physical Exam - Summary Physical Exam Summary: Patient obviously inebriated. Patient calm, cooperative with exam. Oriented to person and place. No obvious deformity, swelling, erythema, ecchymosis, contusion or wound to head, face, mouth. No pain with palpation of neck. Patient moves head in flexion and extension and rotation freely without indication of pain. Lung sounds clear to auscultation bilaterally. No evidence of wound, ecchymosis, erythema, swelling, mass, contusion noted to back , chest wall or abdomen. No pain with palpation of abdomen. Area on right thigh alleged to be self-inflicted wound by knife is hardly noticeable. There appears to be a tiny red spot. No pain with palpation of bilateral lower extremities. Patient moves bilateral lower extremities freely without indication of pain. No ecchymosis, erythema, swelling, deformity, contusion noted to bilateral lower extremities. No evidence of diaphoresis, N/V, hallucinations, tremors noted. Triage Information Reviewed: Yes Vital Signs On Initial Exam: Initial Vitals Temp Pulse Resp BP Pulse Ox 98 F 92 16 137/103 97 10/14/18 23:21 10/14/18 23:21 10/14/18 23:21 10/14/18 23:21 10/14/18 23:21 Vital Signs Reviewed: Yes Appearance: Positive: Well-Appearing Skin: Positive: Warm Head/Face: Positive: Normal Head/Face Inspection Eyes: Positive: Normal ENT: Positive: Normal ENT inspection Neck: Positive: Supple Respiratory/Lung Sounds: Positive: Clear to Auscultation Cardiovascular: Positive: Normal Abdomen Description: Positive: Nontender Musculoskeletal: Positive: Normal Neurological: Positive: Normal Psychiatric: Positive: Other AVPU Assessment: Alert - [place] Coma Scale Best Eye Response: 4 - Spontaneous Best Motor Response: 6 - Obeys Commands Best Verbal Response: 5 - Oriented Coma Scale Total: 15 Diagnostics - Vital Signs Vital Signs Temp Pulse Resp BP Pulse Ox 10/14/18 23:21 98 F 92 16 137/103 97 - Laboratory Lab Results: Lab Results 10/14/18 10/14/18 Range/Units 23:42 23:42 WBC 7.9 (3.5-10.8) 10^3/ul RBC 4.64 (4.00-5.40) 10^6/ul Hgb 15.5 (14.0-18.0) g/dl Hct 45 (42-52) % MCV 97 H (80-94) fL MCH 33 H (27-31) pg MCHC 34 (31-36) g/dl RDW 14 (10.5-15) % Plt Count 312 (150-450) 10^3/ul MPV 6.6 L (7.4-10.4) fL Neut % (Auto) Pending Lymph % (Auto) Pending [place] % (Auto) Pending Eos % (Auto) Pending Baso % (Auto) Pending Absolute Neuts (auto) Pending Absolute Lymphs (auto) Pending Absolute Monos (auto) Pending Absolute Eos (auto) Pending Absolute Basos (auto) Pending Absolute Nucleated RBC Pending Nucleated RBC % Pending Sodium 143 (135-145) mmol/L Potassium 3.7 (3.5-5.0) mmol/L Chloride 106 (101-111) mmol/L Carbon Dioxide 27 (22-32) mmol/L Anion Gap 10 (2-11) mmol/L BUN 13 (6-24) mg/dL Creatinine 1.00 (0.67-1.17) mg/dL Est GFR ( Amer) 94.9 (>60) Est GFR (Non-Af Amer) 78.5 (>60) BUN/Creatinine Ratio 13.0 (8-20) Glucose 99 (70-100) mg/dL Calcium 8.9 (8.6-10.3) mg/dL Total Bilirubin 0.50 (0.2-1.0) mg/dL AST 33 (13-39) U/L ALT 27 (7-52) U/L Alkaline Phosphatase 71 (34-104) U/L Total Protein 7.2 (6.4-8.9) g/dL Albumin 4.4 (3.2-5.2) g/dL Globulin 2.8 (2-4) g/dL Albumin/Globulin Ratio 1.6 (1-3) TSH 2.51 (0.34-5.60) mcIU/mL Salicylates < 2.50 (<30) mg/dL Acetaminophen < 15 mcg/mL Serum Alcohol 391 H (<10) mg/dL Result Diagrams: 10/14/18 23:42 10/14/18 23:42 Lab Statement: Any lab studies that have been ordered have been reviewed, and results considered in the medical decision making process. Course/Dx - Course Course Of Treatment: Patient with history of chronic EtOH, obviously inebriated today, complains of fall earlier today with head injury, and subsequent head pain and voice inside his head telling him to hurt himself. Patient admits to 7 beers and 1 quart of homemade moonshine. Patient also admits to stabbing himself in the right thigh with a knife. Wound on right thigh almost unnoticeable. Patient denies any other symptoms or injury. Patient states he was getting up from the toilet after having a bowel movement and got lightheaded and fell to the ground and hit his head. LOC unknown. Patient has been ambulatory since. Denies prior history of hearing voices telling him to hurt himself. Medical history is chronic EtOH, pancreatitis, liver disease, COPD. Physical exam: Patient obviously inebriated. Patient calm, cooperative with exam. Oriented to person and place. No obvious deformity, swelling, erythema, ecchymosis, contusion or wound to head, face, mouth. No pain with palpation of neck. Patient moves head in flexion and extension and rotation freely without indication of pain. Lung sounds clear to auscultation bilaterally. No evidence of wound, ecchymosis, erythema, swelling, mass, contusion noted to back, chest wall or abdomen. No pain with palpation of abdomen. Area on right thigh alleged to be self-inflicted wound by knife is hardly noticeable. There appears to be a tiny red spot. No pain with palpation of bilateral lower extremities. Patient moves bilateral lower extremities freely without indication of pain. No ecchymosis, erythema, swelling, deformity, contusion noted to bilateral lower extremities. No evidence of diaphoresis, N/V, hallucinations, tremors noted. Vital signs within normal limits. CT brain unremarkable. Labs unremarkable. Serum EtOH 391 at 23:42. Mental health evaluation pending diminishment of serum EtOH, approximately 12 hours of obs required for same. - Diagnoses Provider Diagnoses: Alcohol abuse, Self-harming behavior Discharge - Sign-Out/Discharge Documenting (check all that apply): Sign-Out Patient Signing out patient TO: James Stoddard - Discharge Plan Condition: Stable Referrals: Duyen Hanley MD [Primary Care Provider] - - Billing Disposition and Condition Condition: STABLE
[2018-10-15 01:11] LABS: ABS Basophils 0.1 10^3/ul (0-0.2); ABS Eosinophils 0 10^3/ul (0-0.6); ABS Lymphocytes 4.5 10^3/ul (1.0-4.8); ABS Monocytes 0.5 10^3/ul (0-0.8); ABS Neutrophils 2.8 10^3/ul (1.5-7.7); ABS Nucleated RBC 0 10^3/ul; Eosinophil % 0.1 %; Lymphocyte % 56.9 %; Nucleated Red Blood Cells % 0
[2018-10-15] MEDS ORDERED: Tetan/Diph/Pertus SYR(Tdap)* 0.5 ML SYR(BOOSTRIX) use SYR IM ONE (02:30)
--- NOTE | 2018-10-15 02:47 | ED ---
Progress - Progress Note Progress Note: RECEIVING SIGN-OUT FROM GERARD CHRISTIANSON AT SHIFT CHANGE, PENDING SOBRIETY AND MHE. Course/Dx - Course Course Of Treatment: RECEIVING SIGN-OUT FROM GERARD CHRISTIANSON AT SHIFT CHANGE, PENDING SOBRIETY AND MHE. - Diagnoses Provider Diagnoses: Alcohol intoxication, Suicidal ideation Discharge - Sign-Out/Discharge Documenting (check all that apply): Receiving Sign-Out Receiving patient FROM: Jaiden Fish - PENDING SOBRIETY, MHE - Discharge Plan Condition: Stable Referrals: Duyen Hanley MD [Primary Care Provider] - - Billing Disposition and Condition Condition: STABLE - Attestation Statements Document Initiated by Scribe: Yes Documenting Scribe: Yaniv Quintero Provider For Whom Mitzi is Documenting (Include Credential): Dr. James Stoddard MD Scribe Attestation: Yaniv Mcknight, scribed for Dr. James Stoddard MD on 10/15/18 at 0526. Scribe Documentation Reviewed: Yes Provider Attestation: The documentation as recorded by the Yaniv duffy accurately reflects the service I personally performed and the decisions made by me, Dr. James Stoddard MD Status of Scribe Document: Viewed
[2018-10-15] MEDS ORDERED: Mouth Piece, Nicotine* 1 EACH CARTRIDGE INH ONE (03:00)
[2018-10-15] MEDS ORDERED: Acetaminophen TAB* 325 MG ONE (09:38)
--- NOTE | 2018-10-15 11:53 | ED ---
Progress - Progress Note Progress Note: Patient was signed out to Dr. Abran Arredondo via Dr. James Stoddard, pending MHE/ sobriety, upon shift change on 10/15/2018 at 0700. Re-Evaluation - Re-Evaluation First Eval Re-Evaluation Time: 11:51 Change: Improved Comment: PATIENT IS MEDICALLY CLEAR. Course/Dx - Course Course Of Treatment: Patient was signed out to Dr. Abran Arredondo via Dr. James Stoddard, pending MHE/sobriety, upon shift change on 10/15/2018 at 0700. - Diagnoses Provider Diagnoses: Alcohol abuse - Provider Notifications Discussed Care Of Patient With: Tomas Allen Time Discussed With Above Provider: 13:45 Instructed by Provider To: Other - Recommends discharging patient. Discharge - Sign-Out/Discharge Documenting (check all that apply): Patient Departure - DISCHARGE - Discharge Plan Condition: Stable Disposition: HOME Patient Education Materials: Abuse of Alcohol (ED) Referrals: Duyen Hanley MD [Primary Care Provider] - 3 Days Additional Instructions: FOLLOW UP WITH PRIMARY CARE PROVIDER IN 3 DAYS. FOLLOW UP WITH YOUR PRIMARY CARE PROVIDER WITHIN ONE WEEK FOR HIGH BLOOD PRESSURE NOTED TODAY. RETURN TO ED FOR ANY NEW OR WORSENING SYMPTOMS. - Attestation Statements Document Initiated by Scribe: Yes Documenting Scribe: Grant Wesley Provider For Whom Scribe is Documenting (Include Credential): Abran Arredondo MD Scribe Attestation: Grant Mcknight, scribed for Abran Arredondo MD on 10/15/18 at 1344. Status of Scribe Document: Ready Attestations Scribe Attestation: Grant Wesley User Type: Provider Provider Attestation: Dr. Arnulfo Mcknight personally performed the services described in this documentation as scribed in my presence and it is both accurate and complete.
[2018-10-15 13:53] VITALS: BP 144/91
== END 2018-10-15 13:52 | disposition home or self-care (01) ==
LOC: ED 23:18
DX: F10.129 Alcohol abuse with intoxication, unspecified (principal); Y90.8 Blood alcohol level of 240 mg/100 ml or more; R45.851 Suicidal ideations; F17.210 Nicotine dependence, cigarettes, uncomplicated
CPT/HCPCS: 36415; 70450; 80053; 80320; 80329; 84443; 85025; 90471; 90715; 99284; A9270-GY; G0480

== ENCOUNTER 2018-12-14 22:55 | Emergency (ER) | payer OTHER ==
[2018-12-14] MEDS ORDERED: Ondansetron INJ* 2 MG/ML VIAL IV ONE (23:30)
[2018-12-14] MEDS ORDERED: NS 0.9% 1000 ML** 1,000 ML IV ONE (23:30)
--- NOTE | 2018-12-14 23:33 | ED ---
Abdominal Pain/Male - HPI Summary HPI Summary: Patient complains of one episode of vomiting blood, right-sided abdominal pain, right-sided weakness starting at 20//30 tonight. Patient smells of alcohol, admits to only one beer today. Denies fever, cough, sore throat, CP, SOB, diarrhea, change in urine, change in BM. - History of Current Complaint Chief Complaint: EDGeneral Stated Complaint: VOMITING BLOOD/WEAKNESS ON RT SIDE PER PT Time Seen by Provider: 12/14/18 23:13 Hx Obtained From: Patient Onset/Duration: Sudden Onset Timing: Constant Severity Initially: Moderate Severity Currently: Moderate Pain Intensity: 7 Pain Scale Used: 0-10 Numeric Location: Discrete At: RUQ Radiates: No Character: Burning, Cramping Aggravating Factor(s): Nothing Alleviating Factor(s): Nothing Associated Signs And Symptoms: Positive: Vomiting - Allergies/Home Medications Allergies/Adverse Reactions: Allergies Allergy/AdvReac Type Severity Reaction Status Date / Time indomethacin [From Indocin] Allergy See Comment Verified 12/14/18 23:02 morphine Allergy Hallucinati Verified 12/14/18 23:02 ons mushroom Allergy Swelling Verified 12/14/18 23:02 ranitidine [From Zantac] Allergy Hives Verified 12/14/18 23:02 mayonnaise AdvReac Severe GI Upset Verified 12/14/18 23:02 PMH/Surg Hx/FS Hx/Imm Hx Endocrine/Hematology History: Denies: Hx Anticoagulant Therapy, Hx Diabetes, Hx Thyroid Disease Cardiovascular History: Reports: Hx Angina, Hx Coronary Artery Disease, Hx Myocardial Infarction Denies: Hx Hypercholesterolemia, Hx Hypertension, Hx Pacemaker/ICD, Hx Valvular Heart Disease Respiratory History: Reports: Hx Asthma - USE RESCUE INHALER,, Hx Chronic Obstructive Pulmonary Disease (COPD), Hx Pneumonia - recent GI History: Reports: Other GI Disorders - pancreatitis History: Denies: Hx Dialysis, Hx Renal Disease Musculoskeletal History: Reports: Hx Arthritis - NECK, Other Musculoskeletal History - INTERVERTEBRAL DISC CERVICAL W/MYELOPATHY Sensory History: Reports: Hx Contacts or Glasses - READING GLASSES Denies: Hx Hearing Aid Opthamlomology History: Reports: Hx Contacts or Glasses - READING GLASSES Neurological History: Reports: Hx Transient Ischemic Attacks (TIA) Denies: Hx Dementia, Hx Headaches, Hx Migraine, Hx Nerve Disease, Hx Seizures , Hx Spinal Cord Injury Psychiatric History: Reports: Hx Anxiety, Hx Panic Disorder Denies: Hx Attention Deficit Hyperactivity Disorder, Hx Eating Disorder, Hx Depression, Hx Post Traumatic Stress Disorder, Hx Inpatient Treatment, Hx Community Mental Health Tx, Hx Schizophrenia, Hx Bipolar Disorder, Hx Suicide Attempt, Hx of Violent Episodes Against Others, Hx Substance Abuse - Pt denies having dependence, Other Psychiatric Issues/Disorders - Surgical History Surgery Procedure, Year, and Place: CERVICAL FUSION 11/01-[facility] Infectious Disease History: No Infectious Disease History: Denies: Hx Clostridium Difficile, Hx Hepatitis, Hx Human Immunodeficiency Virus (HIV), Hx Shingles, Hx Tuberculosis, Traveled Outside the [place] in Last 30 Days - Family History Known Family History: Positive: Cardiac Disease - father, Other - Noncontributory Family History: mother with emphysema - Social History Alcohol Use: Daily Alcohol Amount: 1 beer tonight Substance Use Type: Reports: None Smoking Status (MU): Heavy Every Day Tobacco Smoker Type: Cigarettes Amount Used/How Often: 4-6 CIGARETTES PER DAY Have You Smoked in the Last Year: Yes Review of Systems Constitutional: Negative Eyes: Negative ENT: Negative Cardiovascular: Negative Respiratory: Negative Positive: Abdominal Pain, Vomiting Genitourinary: Negative Musculoskeletal: Negative Skin: Negative Positive: Weakness Psychological: Normal All Other Systems Reviewed And Are Negative: Yes Physical Exam - Summary Physical Exam Summary: Patient neurologically evaluated by the attending Dr. Gary and myself who agreed right side weakness symptoms not consistent with stroke. Normal table and desk finisher strength in right hand versus left hand. No right arm drift. No right leg drift. Normal smile. Tongue function neurologically intact. Abdomen tender to palpation right upper quadrant, epigastrium. Otherwise unremarkable. Lung sounds clear to auscultation bilaterally. Triage Information Reviewed: Yes Vital Signs On Initial Exam: Initial Vitals Temp Pulse Resp BP Pulse Ox 99.1 F 88 16 135/91 97 12/14/18 22:55 12/14/18 22:55 12/14/18 22:55 12/14/18 22:55 12/14/18 22:55 Vital Signs Reviewed: Yes Appearance: Positive: Well-Appearing Skin: Positive: Warm Head/Face: Positive: Normal Head/Face Inspection Eyes: Positive: Normal ENT: Positive: Normal ENT inspection Neck: Positive: Supple Respiratory/Lung Sounds: Positive: Clear to Auscultation Cardiovascular: Positive: Normal Abdomen Description: Positive: Other: Musculoskeletal: Positive: Normal Neurological: Positive: Normal Psychiatric: Positive: Normal AVPU Assessment: Alert - [place] Coma Scale Best Eye Response: 4 - Spontaneous Best Motor Response: 6 - Obeys Commands Best Verbal Response: 5 - Oriented Coma Scale Total: 15 Diagnostics - Vital Signs Vital Signs Temp Pulse Resp BP Pulse Ox 12/14/18 23:22 30 12/14/18 22:55 99.1 F 88 16 135/91 97 - Laboratory Result Diagrams: 12/15/18 00:19 12/15/18 00:19 Lab Statement: Any lab studies that have been ordered have been reviewed, and results considered in the medical decision making process. Abdominal Pain Male Course/Dx - Course Course Of Treatment: Patient complains of one episode of vomiting blood, right- sided abdominal pain, right-sided weakness starting at 07/11/29 tonight. Patient smells of alcohol, admits to only one beer today. Denies fever, cough, sore throat, CP, SOB, diarrhea, change in urine, change in BM. Physical exam: Patient neurologically evaluated by the attending Dr. Gary and myself who agreed right side weakness symptoms not consistent with stroke. Normal table and desk finisher strength in right hand versus left hand. No right arm drift. No right leg drift. Normal smile. Tongue function neurologically intact. Abdomen tender to palpation right upper quadrant, epigastrium. Otherwise unremarkable. Lung sounds clear to auscultation bilaterally. Patient's right-sided weakness evaluated by myself and attending Dr. Gary. It was decided right-sided weakness was not due to neurological dysfunction. Vital signs unremarkable. Labs unremarkable. Ultrasound gallbladder unremarkable. CT abdomen and pelvis unremarkable. No active vomiting here in ED. Diagnosis gastritis. GI cocktail given. Rx for omeprazole. Follow-up with GI Dr. Rico. - Diagnoses Provider Diagnoses: Abdominal pain, Alcohol abuse Discharge - Sign-Out/Discharge Documenting (check all that apply): Patient Departure Patient Received Moderate/Deep Sedation with Procedure: No - Discharge Plan Condition: Stable Disposition: HOME Prescriptions: Omeprazole 20 mg PO DAILY 30 Days #30 capsule. Patient Education Materials: Abuse of Alcohol (ED), Acute Abdominal Pain (ED) Referrals: Duyen Hanley MD [Primary Care Provider] - Luis Miguel London MD [Medical Doctor] - Additional Instructions: If your stomach pain persists despite the new medication follow-up with primary care and GI Dr. London for further evaluation. Return to the ED for any new or worsening symptoms. - Billing Disposition and Condition Condition: STABLE Disposition: Home
[2018-12-15 00:33] LABS: ABS Basophils 0.1 10^3/ul (0-0.2); ABS Eosinophils 0.4 10^3/ul (0-0.6); ABS Monocytes 0.7 10^3/ul (0-0.8); ABS Neutrophils 3.4 10^3/ul (1.5-7.7); ABS Nucleated RBC 0 10^3/ul; Eosinophil % 5.9 %; Hematocrit 46 % (36-46); Hemoglobin 15.9 g/dL (14.0-18.0); Lymphocyte % 30.5 %; Mean Corpuscular HGB Conc 35 g/dL (31-36); Mean Corpuscular Hemoglobin 34 pg (27-31); Mean Corpuscular Volume 99 fL (80-94); Mean Platelet Volume 7.8 fL (7.4-10.4); Nucleated Red Blood Cells % 0; Platelet Count 226 10^3/uL (150-450); Red Blood Count 4.65 10^6 /uL (4.18-5.48); Red Cell Distribution Width 14 % (10.5-15); White Blood Count 6.6 10^3/uL (3.5-10.8)
[2018-12-15 00:37] LABS: Urine Appearance Clear; Urine Bilirubin Negative (Negative); Urine Blood Negative (Negative); Urine Color Straw; Urine Glucose Negative (Negative); Urine Ketones Negative (Negative); Urine Nitrite Negative (Negative); Urine Protein Negative (Negative); Urine Specific Gravity 1.002 (1.010-1.030); Urine Urobilinogen Negative (Negative)
[2018-12-15 00:38] LABS: INR 0.82 (0.77-1.02)
[2018-12-15 00:56] LABS: Albumin 4.1 g/dL (3.2-5.2); Albumin/Globulin Ratio 1.4 (1-3); BUN/Creatinine Ratio 11.8 (8-20); C Reactive Protein 2.15 mg/L (<8.01); EGFR African American 130.3 (>60); EGFR Non-African American 107.7 (>60); Globulin 2.9 g/dL (2-4); Potassium 3.8 mmol/L (3.5-5.0); Total Bilirubin 0.3 mg/dL (0.2-1.0)
[2018-12-15] MEDS ORDERED: Iohexol 300* (CONTRAST) 10 ML SDV IV ONE (01:04)
[2018-12-15] MEDS ORDERED: Lidocaine 2% VISCOUS* 15 ML UDC PO ONE (02:26)
[2018-12-15] MEDS ORDERED: Al Hydrox/Mg Hydrox/Simet LIQ* 30 ML UDC PO ONE (02:27)
[2018-12-15 03:08] VITALS: BP 104/72
== END 2018-12-15 03:09 | disposition home or self-care (01) ==
LOC: ED 22:55
DX: R10.11 Right upper quadrant pain (principal); R10.816 Epigastric abdominal tenderness; F10.10 Alcohol abuse, uncomplicated; K83.8 Other specified diseases of biliary tract; R11.10 Vomiting, unspecified; R53.1 Weakness; I25.119 Atherosclerotic heart disease of native coronary artery with unspecified angina pectoris; I25.2 Old myocardial infarction; J45.909 Unspecified asthma, uncomplicated; Z88.5 Allergy status to narcotic agent; Z88.8 Allergy status to other drugs, medicaments and biological substances; Z91.018 Allergy to other foods; F17.210 Nicotine dependence, cigarettes, uncomplicated
CPT/HCPCS: 36415; 74177; 76705; 80053; 80320; 81003; 83605; 83690; 85025; 85610; 86140; 93005; 96361; 96374; 99283; A9270-GY; G0480; J2405; Q9967

== ENCOUNTER 2018-12-31 15:25 | Emergency (ER) | payer OTHER ==
--- NOTE | 2018-12-31 15:55 | ED ---
Head Injury - HPI Summary HPI Summary: Pt is a 53 y/o male who presents to the ED s/p head injury. 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 The car fell and hit the left side of his head. Since then hes had worsening hearing loss and left- sided head pressure, and has been off-balance. Pain is rated a 10/10 in severity. He has total hearing loss of his left ear, and has about 75% of his right ear. Pt also reports that hes having visual hallucinations of cars driving in his backyard. He denies any neck pain. Pt called his PCP at [place] who sent an ambulance to his house. He refused to come via ambulance and instead drove. Pt had 8 beers today. - History Of Current Complaint Chief Complaint: EDHeadInjury Stated Complaint: HEAD INJURY PER PT Time Seen by Provider: 12/31/18 15:38 Hx Obtained From: Patient Mechanism Of Injury: Direct Blow - car fell on left side of head Onset/Duration: Started Days Ago - 2, Worse Since Severity Currently: Severe Pain Intensity: 10 Pain Scale Used: 0-10 Numeric Location of Head Injury: Frontal - left Character: Pressure Associated Signs And Symptoms: Other: - hearing loss, off-balance - Allergies/Home Medications Allergies/Adverse Reactions: Allergies Allergy/AdvReac Type Severity Reaction Status Date / Time indomethacin [From Indocin] Allergy See Comment Verified 12/14/18 23:02 morphine Allergy Hallucinati Verified 12/14/18 23:02 ons mushroom Allergy Swelling Verified 12/14/18 23:02 ranitidine [From Zantac] Allergy Hives Verified 12/14/18 23:02 mayonnaise AdvReac Severe GI Upset Verified 12/14/18 23:02 PMH/Surg Hx/FS Hx/Imm Hx Endocrine/Hematology History: Denies: Hx Anticoagulant Therapy, Hx Diabetes, Hx Thyroid Disease Cardiovascular History: Reports: Hx Angina, Hx Coronary Artery Disease, Hx Myocardial Infarction Denies: Hx Hypercholesterolemia, Hx Hypertension, Hx Pacemaker/ICD, Hx Valvular Heart Disease Respiratory History: Reports: Hx Asthma - USE RESCUE INHALER,, Hx Chronic Obstructive Pulmonary Disease (COPD), Hx Pneumonia - recent GI History: Reports: Other GI Disorders - pancreatitis History: Denies: Hx Dialysis, Hx Renal Disease Musculoskeletal History: Reports: Hx Arthritis - NECK, Other Musculoskeletal History - INTERVERTEBRAL DISC CERVICAL W/MYELOPATHY Sensory History: Reports: Hx Contacts or Glasses - READING GLASSES Denies: Hx Hearing Aid Opthamlomology History: Reports: Hx Contacts or Glasses - READING GLASSES Neurological History: Reports: Hx Transient Ischemic Attacks (TIA) Denies: Hx Dementia, Hx Headaches, Hx Migraine, Hx Nerve Disease, Hx Seizures , Hx Spinal Cord Injury Psychiatric History: Reports: Hx Anxiety, Hx Panic Disorder Denies: Hx Attention Deficit Hyperactivity Disorder, Hx Eating Disorder, Hx Depression, Hx Post Traumatic Stress Disorder, Hx Inpatient Treatment, Hx Community Mental Health Tx, Hx Schizophrenia, Hx Bipolar Disorder, Hx Suicide Attempt, Hx of Violent Episodes Against Others, Hx Substance Abuse - Pt denies having dependence, Other Psychiatric Issues/Disorders - Surgical History Surgery Procedure, Year, and Place: CERVICAL FUSION 11/01-[facility] Infectious Disease History: No Infectious Disease History: Denies: Hx Clostridium Difficile, Hx Hepatitis, Hx Human Immunodeficiency Virus (HIV), Hx Shingles, Hx Tuberculosis, Traveled Outside the [place] in Last 30 Days - Family History Known Family History: Positive: Cardiac Disease - father Family History: mother with emphysema - Social History Alcohol Use: Daily Alcohol Amount: 8 beers today Hx Substance Use: No Substance Use Type: Reports: None Hx Tobacco Use: Yes Smoking Status (MU): Heavy Every Day Tobacco Smoker Type: Cigarettes Amount Used/How Often: 4-6 CIGARETTES PER DAY Have You Smoked in the Last Year: Yes Review of Systems Positive: Other - visual hallucinations Positive: Other - hearing loss, R worse than L Negative: Myalgia - neck pain Neurological: Other - off-balance Positive: Headache - pressure, left All Other Systems Reviewed And Are Negative: Yes Physical Exam - Summary Physical Exam Summary: Appearance: well appearing, no pain distress Skin: warm, dry, reflects adequate perfusion Head/face: tenderness to left side of face and forehead without swelling, deformity, or abrasions Eyes: EOMI, ABILIO ENT: mucous membranes moist, TMs intact, no hemotympanum Neck: supple, non-tender, no midline tenderness Respiratory: mild expiratory wheezes, breath sounds present Cardiovascular: RRR, pulses symmetrical Abdomen: non-tender, soft Bowel Sounds: present Musculoskeletal: normal, strength/ROM intact Neuro: A&Ox3, bilateral hearing loss Triage Information Reviewed: Yes Vital Signs On Initial Exam: Initial Vitals Temp Pulse Resp BP Pulse Ox 97.5 F 81 18 113/96 98 12/31/18 15:31 12/31/18 15:31 12/31/18 15:31 12/31/18 15:31 12/31/18 15:31 Vital Signs Reviewed: Yes - [place] Coma Scale Best Eye Response: 4 - Spontaneous Best Motor Response: 6 - Obeys Commands Best Verbal Response: 5 - Oriented Coma Scale Total: 15 Diagnostics - Vital Signs Vital Signs Temp Pulse Resp BP Pulse Ox 12/31/18 15:31 97.5 F 81 18 113/96 98 - Laboratory Lab Statement: Any lab studies that have been ordered have been reviewed, and results considered in the medical decision making process. - CT Brain CT CT Interpretation Completed By: Radiologist Summary of CT Findings: No traumatic brain injury evident. Negative unenhanced CT of the brain. RIGHT maxillary sinus disease new compared with the prior exam which may reflect acute sinusitis. ED physician reviewed radiology report. Head Injury Course/Dx Course Of Treatment: Nurse's notes reviewed. Patient with head injury several days ago. He has had facial pain in the area of contusion. Head CT negative. Also noted was sinus disease on the opposite right side. This will be covered with antibiotics. This may have some bearing on his worsening chronic hearing loss. He'll follow-up with primary care physician. - Diagnoses Differential Diagnosis/HQI/PQRI: Concussion Without LOC, Intracranial Bleed, Skull Fracture Provider Diagnoses: Acute sinusitis, Closed head injury without loss of consciousness, Facial contusion Discharge - Sign-Out/Discharge Documenting (check all that apply): Patient Departure - Discharge Patient Received Moderate/Deep Sedation with Procedure: No - Discharge Plan Condition: Improved Disposition: HOME Prescriptions: Amoxicillin/Clavulanate TAB* [Augmentin TAB 875*] 875 mg PO BID #20 tab Patient Education Materials: Sinusitis (ED), Head Injury (ED) Forms: *Work Release Referrals: Duyen Hanley MD [Primary Care Provider] - Additional Instructions: Call in the morning to schedule prompt follow up with your doctor. Avoid another injury to your head. Return with uncontrolled headache, vomiting, worse or other concerns. You may take tylenol or ibuprofen for headaches or soreness. Ice to sore areas. - Billing Disposition and Condition Condition: IMPROVED Disposition: Home - Attestation Statements Document Initiated by Scribe: Yes Documenting Scribe: Radha Navas Provider For Whom Scribe is Documenting (Include Credential): Matty Stark MD Scribe Attestation: I, Radha Navas, scribed for Matty Stark MD on 12/31/18 at 1803. Scribe Documentation Reviewed: Yes Provider Attestation: The documentation as recorded by the gloriaibeRadha accurately reflects the service I personally performed and the decisions made by me, Matty Stark MD Status of Scribe Document: Viewed
[2018-12-31] MEDS ORDERED: HYDROcodone/ACETAMIN 5-325 MG* 1 TAB PO ONE (15:59)
[2018-12-31 17:18] VITALS: BP 136/96
== END 2018-12-31 17:16 | disposition home or self-care (01) ==
LOC: ED 15:25
DX: J01.90 Acute sinusitis, unspecified (principal); S09.90XA Unspecified injury of head, initial encounter; S00.93XA Contusion of unspecified part of head, initial encounter; W22.8XXA Striking against or struck by other objects, initial encounter; Y92.9 Unspecified place or not applicable; F17.210 Nicotine dependence, cigarettes, uncomplicated; I25.10 Atherosclerotic heart disease of native coronary artery without angina pectoris; I25.2 Old myocardial infarction; Z86.73 Personal history of transient ischemic attack (TIA), and cerebral infarction without residual deficits
CPT/HCPCS: 70450; 99282

== ENCOUNTER 2019-09-14 04:07 | Emergency (ER) | payer MEDICAID, OTHER ==
[2019-09-14] MEDS ORDERED: Lorazepam PYXIS KEY PRN (04:35)
[2019-09-14] MEDS ORDERED: LORazepam INJ* 2 MG/ML 1 ML VIAL IV PUSH ONE (04:35)
[2019-09-14] MEDS ORDERED: methylPREDNISolone 125 MG* 2 ML VIAL IV ONE (04:37)
[2019-09-14] MEDS ORDERED: Albuterol 2.5 MG/3 ML NEB.SOL* (0.083%) INH ONE (04:37)
--- NOTE | 2019-09-14 04:39 | ED ---
HPI Chest Pain - HPI Summary HPI Summary: This pt is a 54 Y/O M presenting to [facility] with a CC of CP that started after smoking crack at 0200 this morning. He states that the CP is like a pressure and he has SOB and L arm pain. The CP is rated a 7/10 in severity. He states that he has tachycardia and is currently diaphoretic. He states that he took his prescribed anti-anxiety medication without effect. He states that he had 3 rum and cokes prior to smoking the crack. He recently got over being sick. He has no alleviating factors. He states that he has a PMHx of angina, CAD and a past UT. He states a SHx of smoking 1 PPD. - History of Current Complaint Chief Complaint: EDChestPainROMI Time Seen by Provider: 09/14/19 04:35 Hx Obtained From: Patient Onset/Duration: Started Hours Ago - 2, Still Present Time of Onset: 02:00 Timing: Constant Initial Severity: Moderate Current Severity: Moderate Pain Intensity: 7 Pain Scale Used: 0-10 Numeric Chest Pain Location: Diffuse Chest Pain Radiates: Yes Chest Pain Radiates To:: Arm - L Character: Pressure/Squeezing Aggravating Factor(s): Other: - crack Alleviating Factor(s): Nothing Associated Signs and Symptoms: Positive: Chest Pain, Shortness of Breath, Diaphoresis, Palpitations - tachycardia, Wheezing - Additional Pertinent History Primary Care Physician: STANLEY - Allergy/Home Medications Allergies/Adverse Reactions: Allergies Allergy/AdvReac Type Severity Reaction Status Date / Time indomethacin [From Indocin] Allergy See Comment Verified 09/14/19 04:19 morphine Allergy Hallucinati Verified 09/14/19 04:19 ons mushroom Allergy Swelling Verified 09/14/19 04:19 ranitidine [From Zantac] Allergy Hives Verified 09/14/19 04:19 mayonnaise AdvReac Severe GI Upset Verified 09/14/19 04:19 PMH/Surg Hx/FS Hx/Imm Hx Previously Healthy: Yes Endocrine/Hematology History: Denies: Hx Anticoagulant Therapy, Hx Diabetes, Hx Thyroid Disease Cardiovascular History: Reports: Hx Angina, Hx Coronary Artery Disease, Hx Myocardial Infarction Denies: Hx Hypercholesterolemia, Hx Hypertension, Hx Pacemaker/ICD, Hx Valvular Heart Disease Respiratory History: Reports: Hx Asthma - USE RESCUE INHALER,, Hx Chronic Obstructive Pulmonary Disease (COPD), Hx Pneumonia - recent GI History: Reports: Other GI Disorders - pancreatitis History: Denies: Hx Dialysis, Hx Renal Disease Musculoskeletal History: Reports: Hx Arthritis - NECK, Other Musculoskeletal History - INTERVERTEBRAL DISC CERVICAL W/MYELOPATHY Sensory History: Reports: Hx Contacts or Glasses - READING GLASSES Denies: Hx Hearing Aid Opthamlomology History: Reports: Hx Contacts or Glasses - READING GLASSES Neurological History: Reports: Hx Transient Ischemic Attacks (TIA) Denies: Hx Dementia, Hx Headaches, Hx Migraine, Hx Nerve Disease, Hx Seizures , Hx Spinal Cord Injury Psychiatric History: Reports: Hx Anxiety, Hx Panic Disorder Denies: Hx Attention Deficit Hyperactivity Disorder, Hx Eating Disorder, Hx Depression, Hx Post Traumatic Stress Disorder, Hx Inpatient Treatment, Hx Community Mental Health Tx, Hx Schizophrenia, Hx Bipolar Disorder, Hx Suicide Attempt, Hx of Violent Episodes Against Others, Hx Substance Abuse - Pt denies having dependence, Other Psychiatric Issues/Disorders - Cancer History Hx Chemotherapy: No Hx Radiation Therapy: No - Surgical History Surgical History: Yes Surgery Procedure, Year, and Place: CERVICAL FUSION 11/01-[facility] - Immunization History Immunizations Up to Date: Yes Infectious Disease History: No Infectious Disease History: Denies: Hx Clostridium Difficile, Hx Hepatitis, Hx Human Immunodeficiency Virus (HIV), Hx Shingles, Hx Tuberculosis, Traveled Outside the [place] in Last 30 Days - Family History Known Family History: Positive: Cardiac Disease - father Family History: mother with emphysema - Social History Lives: Alone Alcohol Use: Daily Alcohol Amount: 8 beers today Hx Substance Use: Yes Substance Use Type: Reports: Cocaine - crack Hx Tobacco Use: Yes Smoking Status (MU): Heavy Every Day Tobacco Smoker Type: Cigarettes Amount Used/How Often: 4-6 CIGARETTES PER DAY Have You Smoked in the Last Year: Yes Review of Systems Positive: Skin Diaphoresis Positive: Palpitations - tachycardia, Chest Pain Positive: Shortness Of Breath, Other - wheezing All Other Systems Reviewed And Are Negative: Yes Physical Exam - Summary Physical Exam Summary: Appearance: Well-appearing, Well-nourished, lying in bed comfortably, apprehensive, tachypnic and mildly tachycardic Skin: Warm, dry, no obvious rash Eyes: sclera anicteric, no conjunctival pallor ENT: mucous membranes moist, pharynx appears normal Neck: Supple, nontender Respiratory: appears to be in mild respiratory distress with diffuse expiratory wheezing Cardiovascular: Normal S1, S2. No murmurs. Normal distal pulses in tibial and radial bilaterally. Abdomen: Soft, nontender, normal active bowel sounds present Musculoskeletal: Normal, Strength/ROM Intact Neurological: A&Ox3, awake and alert, mentation is normal, speech is fluent and appropriate Psychiatric: affect is normal, does not appear anxious or depressed Triage Information Reviewed: Yes Vital Signs On Initial Exam: Initial Vitals Temp Pulse Resp BP Pulse Ox 98.6 F 103 24 118/84 97 09/14/19 04:07 09/14/19 04:07 09/14/19 04:07 09/14/19 04:07 09/14/19 04:07 Vital Signs Reviewed: Yes Procedures - Sedation Patient Received Moderate/Deep Sedation with Procedure: No Diagnostics - Vital Signs Vital Signs Temp Pulse Resp BP Pulse Ox 09/14/19 04:07 98.6 F 103 24 118/84 97 - Laboratory Result Diagrams: 09/14/19 04:32 09/14/19 04:32 Lab Statement: Any lab studies that have been ordered have been reviewed, and results considered in the medical decision making process. - Radiology CXR Radiology Interpretation Completed By: ED Physician Summary of Radiographic Findings: No acute processes, no pleural effusions. Pending offical review. - EKG 0407 Cardiac Rate: Tachycardia - 107 BPM EKG Rhythm: Sinus Tachycardia ST Segment: Normal Ectopy: None Summary of EKG Findings: Sinus Tachycardia at 107 BPM, P waves, QRS complex, and T waves are within normal limits, T waves and intervals are normal, no ischemic changes. Interpreted by Dr. Stoddard at 0410 09/14/19. Chest Pain Course/Dx - Course Course Of Treatment: This pt is a 54 Y/O M presenting to [facility] with a CC of CP that started after smoking crack at 0200 this morning. He states that the CP is like a pressure and he has SOB and L arm pain. The CP is rated a 7/10 in severity. He states that he has tachycardia and is currently diaphoretic. He states that he has a PMHx of angina, CAD and a past UT. He states a SHx of smoking 1 PPD. His PE found that he is apprehensive, tachypnic, and tachycardic. He also is in mild respiratory distress and has diffuse expiratory wheezes. EKG at 0407 shows Sinus Tachycardia at 107 BPM, P waves, QRS complex, and T waves are within normal limits, T waves and intervals are normal, no ischemic changes. He was given albuterol, Solu-Medrol, and Ativan during his ED course. His CXR found that he has No acute processes, no pleural effusions. This pt will be a sign out to Dr. Patel from Dr. Stoddard at shift change 0700 09/14/19 pending sobriety, repeat trop, and disposition. - Diagnoses Provider Diagnoses: Cocaine abuse, Chest pain, Alcohol intoxication Discharge ED - Sign-Out/Discharge Documenting (check all that apply): Sign-Out Patient Signing out patient TO: Tara Patel - Discharge Plan Condition: Stable Disposition: HOME Patient Education Materials: Chest Pain (ED) Referrals: Duyen Hanley MD [Primary Care Provider] - Additional Instructions: You were seen in the emergency department for chest pain. Do not use cocaine. Your EKG (heart tracing), labs and chest x-ray did not show any cause for pain. Important that you follow up with you primary care doctor in the next 1-2 days to help schedule an outpatient stress test. Please return to the emergency department for continued chest pain, trouble breathing, passing out, or if you're concerned. - Billing Disposition and Condition Condition: STABLE Disposition: Home - Attestation Statements Document Initiated by Mitzi: Yes Documenting Scribe: Augie Miles Provider For Whom Mitzi is Documenting (Include Credential): James Stoddard MD Scribe Attestation: IAugie, scribed for James Stoddard MD on 09/14/19 at 2321. Scribe Documentation Reviewed: Yes Provider Attestation: The documentation as recorded by the Augie duffy accurately reflects the service I personally performed and the decisions made by me, James Stoddard MD Status of Scribe Document: Viewed
[2019-09-14 04:40] LABS: ABS Basophils 0.1 10^3/ul (0-0.2); ABS Lymphocytes 1.9 10^3/ul (1.0-4.8); ABS Monocytes 0.9 10^3/ul (0-0.8); ABS Neutrophils 7.6 10^3/ul (1.5-7.7); Eosinophil % 0.1 %; Hematocrit 46 % (42-52); Mean Corpuscular HGB Conc 35 g/dL (31-36); Mean Corpuscular Hemoglobin 32 pg (27-31); Mean Corpuscular Volume 92 fL (80-94); Nucleated Red Blood Cells % 0.1; Platelet Count 242 10^3/uL (150-450); Red Blood Count 4.99 10^6 /uL (4.18-5.48); Red Cell Distribution Width 15 % (10-15); White Blood Count 10.4 10^3/uL (3.5-10.8)
[2019-09-14 04:44] LABS: INR 0.97 (0.82-1.09)
[2019-09-14 04:56] LABS: Albumin 4.4 g/dL (3.2-5.2); Albumin/Globulin Ratio 1.6 (1-3); BUN/Creatinine Ratio 6.6 (8-20); EGFR African American 105.5 (>60); EGFR Non-African American 87.2 (>60); Globulin 2.7 g/dL (2-4); Potassium 3.3 mmol/L (3.5-5.0); Total Bilirubin 0.9 mg/dL (0.2-1.0); Total Protein 7.1 g/dL (6.4-8.9)
[2019-09-14] MEDS ORDERED: Lorazepam PYXIS KEY ONE (05:10)
--- NOTE | 2019-09-14 07:13 | ED ---
Progress - Progress Note Progress Note: Patient is a sign-out at 07:00 on 09/14/[address] James Stoddard MD to Dr. Tara Patel MD at shift change, pending laboratory findings, sobriety, and disposition. At 08:59, patient's chest pain is resolved. Patient will be discharged with a diagnosis of chest pain and cocaine abuse. Follow up with PCP in 2-3 days. Re-Evaluation - Re-Evaluation First Eval Re-Evaluation Time: 08:59 Change: Improved Comment: At 08:59, patient's chest pain remains resolved. Trop x2 negative. Suspect 2/2 cocaine use. Advised not to use and follow up with PCP Course/Dx - Course Course Of Treatment: This pt is a 54 Y/O M presenting to [facility] with a CC of CP that started after smoking crack at 0200 this morning. He states that the CP is like a pressure and he has SOB and L arm pain. The CP is rated a 7/10 in severity. He states that he has tachycardia and is currently diaphoretic. He states that he has a PMHx of angina, CAD and a past [place]. He states a SHx of smoking 1 PPD. His PE found that he is apprehensive, tachypnic, and tachycardic. He also is in mild respiratory distress and has diffuse expiratory wheezes. EKG at 0407 shows Sinus Tachycardia at 107 BPM, P waves, QRS complex, and T waves are within normal limits, T waves and intervals are normal, no ischemic changes. He was given albuterol, Solu-Medrol, and Ativan during his ED course. His CXR found that he has No acute processes, no pleural effusions. This pt will be a sign out to Dr. Patel from Dr. Stoddard at shift change 0700 09/14/19 pending sobriety, repeat trop, and disposition. - Diagnoses Provider Diagnoses: Cocaine abuse, Chest pain, Alcohol intoxication Discharge ED - Sign-Out/Discharge Documenting (check all that apply): Patient Departure - Discharge, Receiving Sign-Out Receiving patient FROM: James Stoddard - Patient is a sign-out at 07:00 on 09/[address] James Stoddard MD to Dr. Tara Patel MD at shift change, pending laboratory findings, sobriety, and disposition. - Discharge Plan Condition: Stable Disposition: HOME Patient Education Materials: Chest Pain (ED) Referrals: Duyen Hanley MD [Primary Care Provider] - Additional Instructions: You were seen in the emergency department for chest pain. Do not use cocaine. Your EKG (heart tracing), labs and chest x-ray did not show any cause for pain. Important that you follow up with you primary care doctor in the next 1-2 days to help schedule an outpatient stress test. Please return to the emergency department for continued chest pain, trouble breathing, passing out, or if you're concerned. - Billing Disposition and Condition Condition: STABLE Disposition: Home - Attestation Statements Document Initiated by Scribe: Yes Documenting Scribe: Toshia Mueller Provider For Whom Mitzi is Documenting (Include Credential): Tara Patel MD Scribe Attestation: Toshia Mcknight, scribed for Tara Patel MD on 09/14/19 at 0917. Scribe Documentation Reviewed: Yes Provider Attestation: The documentation as recorded by the scribeToshia accurately reflects the service I personally performed and the decisions made by , Tara Patel MD Status of Scribe Document: Viewed
[2019-09-14 09:42] VITALS: BP 118/89
== END 2019-09-14 09:40 | disposition home or self-care (01) ==
LOC: ED 04:07
DX: R07.9 Chest pain, unspecified (principal); F14.10 Cocaine abuse, uncomplicated; F10.929 Alcohol use, unspecified with intoxication, unspecified; I25.10 Atherosclerotic heart disease of native coronary artery without angina pectoris; I25.2 Old myocardial infarction; J44.9 Chronic obstructive pulmonary disease, unspecified; F41.9 Anxiety disorder, unspecified; Z86.73 Personal history of transient ischemic attack (TIA), and cerebral infarction without residual deficits; Z88.5 Allergy status to narcotic agent; Z88.8 Allergy status to other drugs, medicaments and biological substances; Z79.899 Other long term (current) drug therapy
CPT/HCPCS: 36415; 71046; 80053; 80320; 84484; 85025; 85610; 93005; 96374; 96375; 99282; G0480; J2060; J2930